=== PATIENT | male | born 1940 | race American Indian/Alaskan Native ===

== ENCOUNTER 2016-02-20 07:02 | Day surgery (SDC) | payer MEDICARE, OTHER ==
[2016-02-14 14:23] VITALS: BMI 29.7
[~2016-02-20 07:02] MED LIST: LACTATED RINGERS 1,000 ML IV SCH
[2016-02-20 07:22] VITALS: RESP 16; TEMP 97.7
[2016-02-20] MEDS ORDERED: PROPOFOL 10 MG/ML 20 ML VIAL IV ONE (08:26)
[2016-02-20] MEDS ORDERED: LIDOCAINE 1% INJ 10MG/ML (20 ML MDV) ONE (08:26)
--- NOTE | 2016-02-20 08:59 | P.PCN ---
Date of Procedure: 02/20/16 Preoperative Diagnosis: Postoperative Diagnosis: Procedure(s) Performed: Procedure: Colonoscopy and biopsy and polypectomy. Preoperative diagnosis: Change in bowel habits. Postoperative diagnosis: 1. Mild sigmoid diverticulosis with no evidence of acute diverticulitis or strictures. 2. Small sigmoid polyp snared but no large polyps or cancer. 3. Right colon biopsies obtained to rule out microscopic colitis. Preparation: HalfLytely prep. Sedation: Was provided by anesthesia. Brief clinical history: The patient is a 75-year-old male who is referred for this evaluation because of change in bowel habits in the form of diarrhea. The patient had a colonoscopy several years back. This evaluation is to rule out neoplasia or other pathology. Procedure: With the patient on his left lateral decubitus position and after informed consent and adequate sedation, the perianal area was inspected and it did not show any fissures or fistulas. There were no masses felt on digital rectal examination. The Olympus CFQ 160L video colonoscope was then inserted in the rectum in the usual fashion and advanced to the cecum. There were a few diverticular orifices seen scattered in the sigmoid but there was no evidence of acute diverticulitis or stricture. In the mid sigmoid, there was a small polyp measuring between 1 and 1.5 cm that was snared and retrieved by suctioning it to the tip of the endoscope but there were no large polyps or cancer. The mucosa, otherwise, appeared healthy with no edema, erythema, friability, ulceration, exudation or spontaneous bleeding. I obtained right colon biopsies to rule out microscopic colitis. I retroflexed endoscope in the rectum before the endoscope was withdrawn. The patient tolerated the procedure well. Plan: The patient was reassured. Discussed dietary measures. Will await pathology results and make additional recommendations accordingly. I will keep you updated on his progress. Implants: Indications for Procedure: Operative Findings: Description of Procedure:
[2016-02-20 09:30] VITALS: BP 156/79; PULSE 76
== END 2016-02-20 09:57 | disposition home or self-care (01) ==
LOC: ORWHC2ENDO 07:02
DX: D12.5 Benign neoplasm of sigmoid colon (principal); K57.30 Diverticulosis of large intestine without perforation or abscess without bleeding; I10 Essential (primary) hypertension; E78.5 Hyperlipidemia, unspecified; N40.0 Benign prostatic hyperplasia without lower urinary tract symptoms; G20 Parkinson's disease; R19.7 Diarrhea, unspecified; Z79.82 Long term (current) use of aspirin; Z79.899 Other long term (current) drug therapy
CPT/HCPCS: 88305; 45380; 45385; J2001; J2704; 99153

== ENCOUNTER 2016-02-28 07:17 | Observation (INO) | payer MEDICARE, OTHER ==
[2016-02-28] MEDS ORDERED: SODIUM CHLORIDE 0.9% 500 ML IV STA (07:24)
--- NOTE | 2016-02-28 07:29 | ED ---
General Adult HPI - General Stated complaint: fall Time Seen by Provider: 02/28/16 07:17 Source: RN notes reviewed - History of Present Illness Initial comments: This is a 76-year-old male who has a past medical history significant for dementia and Parkinson's disease. Patient got up today and went downstairs and shortly thereafter his daughter went down and found him on the ground. Daughter thought he may have struck his head on a table but there is no blood and no signs trauma. Daughter states initially he was a little confused but now he is at his baseline. There is a language barrier and the daughter has to interpret. EMS stated the patient complained of a headache currently he denies headache to his daughter he only complains of dizziness. Patient denies any nausea. Patient denies any visual disturbance. Patient does have a history of aneurysm. Patient denies any abdominal pain patient denies any recent illness fever cough. Patient denies any chest pain palpitations difficulty breathing or shortness of breath. Patient denies any extremity pain or hip pain. - Related Data Home Medications Medication Instructions Recorded Confirmed Aspirin EC [Ecotrin Low Dose] 81 mg PO DAILY 01/15/16 02/28/16 Donepezil [Aricept] 10 mg PO HS 01/15/16 02/28/16 Metoprolol Succinate (ER) [Toprol 50 mg PO BID 01/15/16 02/28/16 XL] Simvastatin [Zocor] 20 mg PO HS 01/15/16 02/28/16 Tamsulosin HCl [Flomax] 0.4 mg PO HS 01/15/16 02/28/16 Carbidopa-Levodopa 25-100 mg 1 tab PO TID 02/28/16 02/28/16 [Sinemet 25-100 mg] Allergies Allergy/AdvReac Type Severity Reaction Status Date / Time No Known Allergies Allergy Verified 02/28/16 08:10 Review of Systems ROS Statement: Those systems with pertinent positive or pertinent negative responses have been documented in the HPI. ROS Other: All systems not noted in ROS Statement are negative. Past Medical History Past Medical History: Hyperlipidemia, Hypertension, Pneumonia, Prostate Disorder Additional Past Medical History / Comment(s): daughter stated that "pt was started on rx for dementia but now found out he has brain aneurysm so not sure if that is what causing some problem?" balance issues, parkinsons, diarrhea History of Any Multi-Drug Resistant Organisms: None Reported Past Surgical History: Unable to Obtain Additional Past Surgical History / Comment(s): rt carotid endarterectomy, colonoscopy 10 years ago Past Anesthesia/Blood Transfusion Reactions: No Reported Reaction Past Psychological History: No Psychological Hx Reported Smoking Status: Former smoker Past Alcohol Use History: Occasional Additional Past Alcohol Use History / Comment(s): has smoked for 50 years, < 1ppd quit 1 month ago. Past Drug Use History: None Reported - Past Family History Father Family Medical History: Myocardial Infarction ([place]) Mother Family Medical History: CVA/TIA General Exam - General Exam Comments Initial Comments: GENERAL: Patient is well-developed and well-nourished. Patient is nontoxic and well- hydrated and is in mild distress. ENT: Neck is soft and supple. No significant lymphadenopathy is noted. Oropharynx is clear. Moist mucous membranes. Neck has full range of motion without eliciting any pain. EYES: The sclera were anicteric and conjunctiva were pink and moist. Extraocular movements were intact and pupils were equal round and reactive to light. Eyelids were unremarkable. PULMONARY: Unlabored respirations. Good breath sounds bilaterally. No audible rales rhonchi or wheezing was noted. CARDIOVASCULAR: There is a regular rate and rhythm without any murmurs gallops or rubs. ABDOMEN: Soft and nontender with normal bowel sounds. No palpable organomegaly was noted. There is no palpable pulsatile mass. SKIN: Skin is clear with no lesions or rashes and otherwise unremarkable. NEUROLOGIC: Patient is alert and oriented 2 but this is his baseline according to his daughter. Cranial nerves II through XII are grossly intact. Motor and sensory are also intact. Normal speech, volume and content. Symmetrical smile. MUSCULOSKELETAL: Normal extremities with adequate strength and full range of motion. No lower extremity swelling or edema. No calf tenderness. LYMPHATICS: No significant lymphadenopathy is noted PSYCHIATRIC: Normal psychiatric evaluation. Normal interpersonal interactions appears functionally intact in deals appropriately with others. No signs of depression. No signs of anxiety. Course Vital Signs 02/28/16 02/28/16 02/28/16 07:23 07:47 08:04 Temperature 95.8 F L Pulse Rate 53 L 55 L 64 Respiratory 12 15 15 Rate Blood Pressure 102/51 130/62 130/60 O2 Sat by Pulse 97 99 99 Oximetry Medical Decision Making - Medical Decision Making EKG shows sinus rhythm with an occasional PAC at 64 bpm MA was on a 40 QRS is 84 Q-T intervals 454 QTC is 468. Patient's EKG shows no ST segment elevation or depression or T-wave abdomen is noted Patient's CT of the brain and C-spine are negative. Patient's chest x-ray shows about it. Patient is unaware if he passed out or not therefore because of that possibility and the language barrier I feel is safe for the patient to be kept overnight and observed - Lab Data Result diagrams: 02/28/16 07:28 02/28/16 07:28 Lab Results 02/28/16 02/28/16 02/28/16 Range/Units 07:28 07:28 07:28 WBC 9.9 (3.8-10.6) k/uL RBC 4.69 (4.30-5.90) m/uL Hgb 12.8 L (13.0-17.5) gm/dL Hct 39.5 (39.0-53.0) % MCV 84.3 (80.0-100.0) fL MCH 27.2 (25.0-35.0) pg MCHC 32.3 (31.0-37.0) g/dL RDW 13.7 (11.5-15.5) % Plt Count 276 (150-450) k/uL Neutrophils % 77 % Lymphocytes % 16 % Monocytes % 4 % Eosinophils % 2 % Basophils % 0 % Neutrophils # 7.6 (1.3-7.7) k/uL Lymphocytes # 1.5 (1.0-4.8) k/uL Monocytes # 0.4 (0-1.0) k/uL Eosinophils # 0.2 (0-0.7) k/uL Basophils # 0.0 (0-0.2) k/uL PT (9.0-12.0) sec INR (<1.1) APTT (22.0-30.0) sec Sodium 141 (137-145) mmol/L Potassium 4.2 (3.5-5.1) mmol/L Chloride 104 (98-107) mmol/L Carbon Dioxide 29 (22-30) mmol/L Anion Gap 8 mmol/L BUN 15 (9-20) mg/dL Creatinine 1.07 (0.66-1.25) mg/dL Est GFR (MDRD) Af Amer >60 (>60 ml/min/1.73 sqM) Est GFR (MDRD) Non-Af >60 (>60 ml/min/1.73 sqM) Glucose 170 H (74-99) mg/dL POC Glucose (mg/dL) (75-99) mg/dL POC Glu Crossing [place] ID Calcium 8.7 (8.4-10.2) mg/dL Magnesium 1.8 (1.6-2.3) mg/dL Total Bilirubin 0.9 (0.2-1.3) mg/dL AST 15 L (17-59) U/L ALT 18 L (21-72) U/L Alkaline Phosphatase 84 (38-126) U/L Total Creatine Kinase 30 L (55-170) U/L CK-MB (CK-2) 1.2 (0.0-2.4) ng/mL CK-MB (CK-2) Rel Index 4.0 Troponin I <0.012 (0.000-0.034) ng/mL Total Protein 6.5 (6.3-8.2) g/dL Albumin 3.4 L (3.5-5.0) g/dL 02/28/16 02/28/16 Range/Units 07:28 07:31 WBC (3.8-10.6) k/uL RBC (4.30-5.90) m/uL Hgb (13.0-17.5) gm/dL Hct (39.0-53.0) % MCV (80.0-100.0) fL MCH (25.0-35.0) pg MCHC (31.0-37.0) g/dL RDW (11.5-15.5) % Plt Count (150-450) k/uL Neutrophils % % Lymphocytes % % Monocytes % % Eosinophils % % Basophils % % Neutrophils # (1.3-7.7) k/uL Lymphocytes # (1.0-4.8) k/uL Monocytes # (0-1.0) k/uL Eosinophils # (0-0.7) k/uL Basophils # (0-0.2) k/uL PT 10.9 (9.0-12.0) sec INR 1.1 (<1.1) APTT 23.2 (22.0-30.0) sec Sodium (137-145) mmol/L Potassium (3.5-5.1) mmol/L Chloride (98-107) mmol/L Carbon Dioxide (22-30) mmol/L Anion Gap mmol/L BUN (9-20) mg/dL Creatinine (0.66-1.25) mg/dL Est GFR (MDRD) Af Amer (>60 ml/min/1.73 sqM) Est GFR (MDRD) Non-Af (>60 ml/min/1.73 sqM) Glucose (74-99) mg/dL POC Glucose (mg/dL) 157 H (75-99) mg/dL POC Glu Crossing [place] ID Branch, Anuj Calcium (8.4-10.2) mg/dL Magnesium (1.6-2.3) mg/dL Total Bilirubin (0.2-1.3) mg/dL AST (17-59) U/L ALT (21-72) U/L Alkaline Phosphatase (38-126) U/L Total Creatine Kinase (55-170) U/L CK-MB (CK-2) (0.0-2.4) ng/mL CK-MB (CK-2) Rel Index Troponin I (0.000-0.034) ng/mL Total Protein (6.3-8.2) g/dL Albumin (3.5-5.0) g/dL Disposition Clinical Impression: Syncope, Dizziness Disposition: ADMITTED IP TO THIS [facility] Time of Disposition: 09:16
[2016-02-28 07:32] LABS: Glucose,Whole Blood 157 mg/dL (75-99)
[2016-02-28 07:41] LABS: Basophils % (A) 0 %; CH 28.4; CHCM 33.9; Eosinophils # (A) 0.2 k/uL (0-0.7); Eosinophils % (A) 2 %; HCT 39.5 % (39.0-53.0); HDW 3.25; HGB 12.8 gm/dL (13.0-17.5); Luc # (Auto) 0.09; Luc % (Auto) 1; Lymphocytes # (A) 1.5 k/uL (1.0-4.8); Lymphocytes % (A) 16 %; MCH 27.2 pg (25.0-35.0); MCHC 32.3 g/dL (31.0-37.0); MCV 84.3 fL (80.0-100.0); Mean Platelet Volume 8.1; Monocytes # (A) 0.4 k/uL (0-1.0); Monocytes % (A) 4 %; Neutrophils # (A) 7.6 k/uL (1.3-7.7); Neutrophils % (A) 77 %; RBC 4.69 m/uL (4.30-5.90); RDW 13.7 % (11.5-15.5); WBC 9.9 k/uL (3.8-10.6); WBC (Perox) 10.41
[2016-02-28 07:47] LABS: ALT 18 U/L (21-72); AST 15 U/L (17-59); Alkaline Phosphatase 84 U/L (38-126); Anion Gap 8 mmol/L; Blood Urea Nitrogen 15 mg/dL (9-20); Calcium 8.7 mg/dL (8.4-10.2); Carbon Dioxide 29 mmol/L (22-30); Chloride 104 mmol/L (98-107); Glucose 170 mg/dL (74-99); Magnesium 1.8 mg/dL (1.6-2.3); Non-African American GFR(MDRD) >60 (>60 ml/min/1.73 sqM); Potassium 4.2 mmol/L (3.5-5.1); Sodium 141 mmol/L (137-145); Total Bilirubin 0.9 mg/dL (0.2-1.3); Total Protein 6.5 g/dL (6.3-8.2)
[2016-02-28 07:58] LABS: Creatine Kinase 30 U/L (55-170)
[2016-02-28 08:10] LABS: Creatine Kinase MB 1.2 ng/mL (0.0-2.4); INR 1.1 (<1.1); Partial Thromboplastin Time 23.2 sec (22.0-30.0); Prothrombin Time 10.9 sec (9.0-12.0); Troponin I <0.012 ng/mL (0.000-0.034)
--- NOTE | 2016-02-28 08:26 | CT ---
EXAMINATION TYPE: CT brain cspine wo con DATE OF EXAM: 02/28/2016 8:16 AM COMPARISON: 01/17/2016 HISTORY: Fall CT DLP: 1762 mGycm, Automated exposure control for dose reduction was used. CONTRAST: None CT of the brain is performed utilizing 3 mm thick sections through the posterior fossa and 3 mm thick sections through the remaining calvarium. Study is performed within 24 hours of arrival to the hospital. No abnormal hyperdensity is present to suggest an acute intracranial hemorrhage. No mass lesion is evident. No acute infarcts are evident. Some subtle periventricular white matter hypodensity is present, like ly on the basis of chronic white matter ischemic type changes Ventricles and sulci are mildly prominent for the patient age. Paranasal sinuses and mastoid air cells within the aejpt-np-pyhn are clear. IMPRESSIONS: 1. Atrophy with periventricular white matter ischemic changes. CT cervical spine. COMPARISON: 01/17/2016 CT of the cervical spine is performed in the axial plane at 2 mm thick sections. Reconstructed image s in the coronal, and sagittal plane are reviewed on the computer. No acute fractures are evident. Vertebral body alignment is normal. There is loss of disc height at C5-C6. Some posterior loss of disc height is also present C2-C3. Vertebral body heights are preserved. No spinal canal stenosis is evident. Uncovertebral joint hypertrophy is moderate narrowing of the left foramen at C3-4. Some minimal endpl ate spurring from the superior endplate of C4 is present. Left paracentral calcification of the posterior longitudinal ligament appears to be present with mode rate left paracentral thecal sac compression. No AP spinal canal stenosis is present. Some cord conta ct may be present. Uncovertebral joint hypertrophy is present C5-6 with mild bilateral foraminal narr owing slightly greater on the left. Findings are stable from 01/17/2016 comparison. IMPRESSIONS: 1. Degenerative changes discussed above. 2. Foraminal narrowing greater on the left.
--- NOTE | 2016-02-28 09:08 | XR ---
EXAMINATION TYPE: XR chest 2V DATE OF EXAM: 02/28/2016 9:02 AM COMPARISON: 02/07/2016 HISTORY: Chest pain FINDINGS: No pneumothorax. Hyperinflation suggests COPD. The heart is enlarged and there is left lower lobe sub segmental consolidation. Hypertrophic and degenerative change of the spine. IMPRESSION: 1. Left lower lobe atelectasis or resolving infiltrate.
[2016-02-28] MEDS ORDERED: NITROGLYCERIN SL TABS 0.4 MG TAB SUBLINGUAL PRN (09:16)
[2016-02-28] MEDS: SODIUM CHLORIDE 0.9% 1,000 ML IV SCH (14:17)
[2016-02-28 15:15] LABS: Creatine Kinase 33 U/L (55-170)
[2016-02-28 15:29] LABS: Troponin I <0.012 ng/mL (0.000-0.034)
--- NOTE | 2016-02-28 16:01 | P.CNPUL ---
History of Present Illness Consult date: 02/28/16 Requesting physician: Cain Gilbert Reason for consult: other (Near syncope) Chief complaint: Dizziness, lightheadedness History of present illness: This is a very pleasant 76-year-old gentleman who follows with Dr. Baez as his primary care physician. He has a history of hypertension, hyperlipidemia, chronic nicotine addiction, dementia. He was recently started on Sinemet and Aricept for his dementia a couple of weeks ago. Early this morning proximal 20 6 AM he woke up and came to breakfast and took his Toprol XL along with Sinemet. The patient does have a history of brain aneurysms which are being followed closely by Dr. Daly as well. Approximately 1 hour later while he was sitting in the chair he stood up to go to the restroom and got dizzy and lightheaded and had a near syncopal episode. He was brought here via ambulance for the same. The patient himself does not speak [place]. The information is taken from his daughter and sister who are both at the bedside. They felt the patient may have lost consciousness briefly. They state the patient had no symptoms prior. No chest pain, palpitations. No shortness of breath. No previous history of syncope. They feel he may be slightly dehydrated secondary to decreased appetite and decreased intake of fluids. While in the emergency room his blood pressure is 102/51, maintaining O2 saturations in the upper 90s on room air. His hemoglobin was 12.8. No significant lab abnormalities. Troponins are negative 2. Computed tomography scan of the head and neck revealed degenerative changes and foraminal narrowing greater on the left. No acute abnormalities. The patient does have routine carotid Dopplers done at Dr. Newberry's office and family states there is been no significant abnormalities. Chest x-ray revealed COPD and a left lower lobe atelectasis but no acute pulmonary process. Currently, the patient is seen in the observation unit. He is awake and alert in no acute distress. He's been up with assistance. He has not had any further episodes of dizziness or near syncopal occasions. His only complaint at this time is that of being hungry. Review of Systems Toprol point review of system was conducted via translation by the patient's daughter and sister. All negative other than as mentioned in HPI. Past Medical History Past Medical History: Dementia, Hyperlipidemia, Hypertension, Musculoskeletal Disorder, Neurologic Disorder, Pneumonia, Prostate Disorder Additional Past Medical History / Comment(s): Brain aneurysm being monitored by Dr. Daly, parkinson's dx, balance issues, recent pneumonia, BPH, diverticulosis/recent polypectomy-benign, syncope yrs ago. History of Any Multi-Drug Resistant Organisms: None Reported Past Surgical History: Unable to Obtain Additional Past Surgical History / Comment(s): rt carotid endarterectomy, colonoscopies with last one 02/20/16. Past Anesthesia/Blood Transfusion Reactions: No Reported Reaction Past Psychological History: No Psychological Hx Reported Additional Psychological History / Comment(s): Pt resides with his becka. Pt understands alittle Andorran, he can read Andorran some and can sign his name. His primary language is Slovenian. Becka requests that literature be in Andorran, as she cares for the pt and understands Andorran fine. Pt uses a walker when out of the house. He does not drive. His daughter takes him to [employer]. He is currently going to PT twice a week. Smoking Status: Former smoker Past Alcohol Use History: Occasional Additional Past Alcohol Use History / Comment(s): has smoked for 50 years, < 1ppd quit 1 month ago (01/2016). Past Drug Use History: None Reported - Past Family History Father Family Medical History: Myocardial Infarction ([place]) Additional Family Medical History / Comment(s): Father had a [place] at about age 59 or 60yrs. Heart disease runs strongly in pt's side of the family-CAD and MIs. Mother Family Medical History: CVA/TIA Medications and Allergies Home Medications Medication Instructions Recorded Confirmed Type Aspirin EC [Ecotrin Low Dose] 81 mg PO DAILY 01/15/16 02/28/16 History Donepezil [Aricept] 10 mg PO HS 01/15/16 02/28/16 History Metoprolol Succinate (ER) [Toprol 50 mg PO BID 01/15/16 02/28/16 History XL] Simvastatin [Zocor] 20 mg PO HS 01/15/16 02/28/16 History Tamsulosin HCl [Flomax] 0.4 mg PO HS 01/15/16 02/28/16 History Carbidopa-Levodopa 25-100 mg 1 tab PO TID 02/28/16 02/28/16 History [Sinemet 25-100 mg] Allergies Allergy/AdvReac Type Severity Reaction Status Date / Time No Known Allergies Allergy Verified 02/28/16 08:10 Physical Exam Vitals: Vital Signs Temp Pulse Pulse Resp BP BP Pulse Ox 02/28/16 12:17 97 02/28/16 10:55 97.9 F 79 18 158/58 100 02/28/16 10:22 96.8 F L 75 16 143/63 100 02/28/16 09:24 96.7 F L 65 14 135/60 100 Intake and Output 02/28/16 02/28/16 02/28/16 06:59 14:59 22:59 Intake Total 118 Balance 118 Intake: Oral 118 Other: Voiding Method Toilet # Voids 1 Weight 82.4 kg Patient Weight 02/29/16 06:59 Weight 82.4 kg GENERAL EXAM: Alert, active, comfortable in no apparent distress. HEAD: Normocephalic. EYES: Normal reaction of pupils, equal size. NOSE: Clear with pink turbinates. THROAT: No erythema or exudates. NECK: No masses, no JVD. CHEST: No chest wall deformity. LUNGS: Equal air entry with no crackles, wheeze, rhonchi or dullness. CVS: S1 and S2 normal with no audible murmurs, regular rhythm. ABDOMEN: No hepatosplenomegaly, normal bowel sounds, no guarding or rigidity. SPINE: No scoliosis or deformity SKIN: No rashes CENTRAL NERVOUS SYSTEM: No focal deficits, tone is normal in all 4 extremities. Extremities: There is no significant peripheral edema. No clubbing, no cyanosis. Peripheral pulses are intact. Results - Laboratory Findings CBC and BMP: 02/28/16 07:28 02/28/16 07:28 PT/INR, D-dimer PT 10.9 sec (9.0-12.0) 02/28/16 07:28 INR 1.1 (<1.1) 02/28/16 07:28 Abnormal lab findings: Abnormal Labs 02/28/16 14:07 Total Creatine Kinase 33 L - Diagnostic Findings Chest x-ray: image reviewed Assessment and Plan Plan: Impression: #1 Near syncopal episode suspect orthostatic hypotension, the patient does have a history of brain aneurysms however computed tomography scan did not reveal any acute abnormalities. #2 Dementia, recently started on medications in the form of Sinemet and Aricept. #3 Hypertension currently on Toprol-XL 50 mg twice a day. #4 Hyperlipidemia currently on Zocor. 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 Plan: The patient was seen and evaluated by Dr. Adames. His computed tomography scan, chest x-ray and labs were reviewed. We will await echocardiogram results. We'll obtain some orthostatic blood pressure readings. We've explained to the family the potential of needing to spread out some of his morning medications. It is also important to keep up on his fluid intake. We' ll continue to monitor him closely. We'll continue to follow and make further recommendations based on his clinical status.
--- NOTE | 2016-02-28 16:19 | P.CRDCN ---
History of Present Illness Consult date: 02/28/16 History of present illness: This is a pleasant 76-year-old gentleman who sees Dr. Newberry as an outpatient with a past medical history significant for hypertension, dyslipidemia, carotid disease, as well as Parkinson disease, was brought by his family to the emergency room with dizziness and lightheadedness and presyncope. The patient woke up from sleep earlier today and he was sitting at home when he tried to stand up and then felt dizzy and lightheaded and almost passed out. He did not experience any symptoms of chest pain or discomfort or any feeling of heart racing or fluttering and there is no syncope. The EKG showed sinus mechanism without any significant ST or T-wave abnormalities. The cardiac enzymes were checked and came in to be unremarkable. The patient is not aware of any prior history of coronary artery disease, congestive heart failure, or cardiac arrhythmia. According to his family, he just was started on Parkinson disease medications about 4 weeks ago and also according to his family he does not drink water very often. Past Medical History Past Medical History: Dementia, Hyperlipidemia, Hypertension, Musculoskeletal Disorder, Neurologic Disorder, Pneumonia, Prostate Disorder Additional Past Medical History / Comment(s): Brain aneurysm being monitored by Dr. Daly, parkinson's dx, balance issues, recent pneumonia, BPH, diverticulosis/recent polypectomy-benign, syncope yrs ago. History of Any Multi-Drug Resistant Organisms: None Reported Past Surgical History: Unable to Obtain Additional Past Surgical History / Comment(s): rt carotid endarterectomy, colonoscopies with last one 02/20/16. Past Anesthesia/Blood Transfusion Reactions: No Reported Reaction Past Psychological History: No Psychological Hx Reported Additional Psychological History / Comment(s): Pt resides with his becka. Pt understands alittle Montenegrin, he can read Montenegrin some and can sign his name. His primary language is Turkmen. Becka requests that literature be in Montenegrin, as she cares for the pt and understands Montenegrin fine. Pt uses a walker when out of the house. He does not drive. His daughter [facility] him to [employer]. He is currently going to PT twice a week. Smoking Status: Former smoker Past Alcohol Use History: Occasional Additional Past Alcohol Use History / Comment(s): has smoked for 50 years, < 1ppd quit 1 month ago (01/2016). Past Drug Use History: None Reported - Past Family History Father Family Medical History: Myocardial Infarction ([place]) Additional Family Medical History / Comment(s): Father had a [place] at about age 59 or 60yrs. Heart disease runs strongly in pt's side of the family-CAD and MIs. Mother Family Medical History: CVA/TIA Medications and Allergies Home Medications Medication Instructions Recorded Confirmed Type Aspirin EC [Ecotrin Low Dose] 81 mg PO DAILY 01/15/16 02/28/16 History Donepezil [Aricept] 10 mg PO HS 01/15/16 02/28/16 History Metoprolol Succinate (ER) [Toprol 50 mg PO BID 01/15/16 02/28/16 History XL] Simvastatin [Zocor] 20 mg PO HS 01/15/16 02/28/16 History Tamsulosin HCl [Flomax] 0.4 mg PO HS 01/15/16 02/28/16 History Carbidopa-Levodopa 25-100 mg 1 tab PO TID 02/28/16 02/28/16 History [Sinemet 25-100 mg] Allergies Allergy/AdvReac Type Severity Reaction Status Date / Time No Known Allergies Allergy Verified 02/28/16 08:10 Physical Exam Vitals: Vital Signs Temp Pulse Pulse Resp BP BP Pulse Ox 02/28/16 15:59 97.2 F L 73 18 143/64 98 02/28/16 12:17 97 02/28/16 10:55 97.9 F 79 18 158/58 100 02/28/16 10:22 96.8 F L 75 16 143/63 100 02/28/16 09:24 96.7 F L 65 14 135/60 100 Intake and Output 02/28/16 02/28/16 02/28/16 06:59 14:59 22:59 Intake Total 118 Balance 118 Intake: Oral 118 Other: Voiding Method Toilet # Voids 1 Weight 82.4 kg Patient Weight 02/29/16 06:59 Weight 82.4 kg - Constitutional General appearance: no acute distress - Respiratory Respiratory: bilateral: CTA - Cardiovascular Rhythm: regular Heart sounds: normal: S1, S2 Results 02/28/16 07:28 02/28/16 07:28 Cardiac Enzymes 02/28/16 Range/Units 14:07 CK-MB (CK-2) 1.0 (0.0-2.4) ng/mL Troponin I <0.012 (0.000-0.034) ng/mL Current Medications Generic Name Dose Route Start Last Admin Trade Name Freq PRN Reason Stop Dose Admin Aspirin 81 mg 02/29/16 09:00 Aspirin PO DAILY [facility] Atorvastatin Calcium 10 mg 02/28/16 21:00 Lipitor PO HS ALEXYS Carbidopa/Levodopa 1 each 02/28/16 16:00 Sinemet 25-100 PO TID [facility] Sodium Chloride 1,000 mls @ 100 mls/hr 02/28/16 14:00 02/28/16 14:17 Saline 0.9% IV 100 mls/hr .Q10H ALEXYS Administration Metoprolol Succinate 50 mg 02/29/16 09:00 Toprol Xl PO DAILY [facility] Nitroglycerin 0.4 mg 02/28/16 09:16 Nitrostat SUBLINGUAL Q5M PRN Chest Pain Tamsulosin HCl 0.4 mg 02/28/16 21:00 Flomax PO HS ALEXYS Intake and Output 02/28/16 02/28/16 02/28/16 06:59 14:59 22:59 Intake Total 118 Balance 118 Intake: Oral 118 Other: Voiding Method Toilet # Voids 1 Weight 82.4 kg Patient Weight 02/29/16 06:59 Weight 82.4 kg Assessment and Plan Plan: Assessment #1 dizziness and lightheadedness and presyncope #2 Parkinson disease #3 systemic hypertension #4 dyslipidemia Plan #1 the patient clinical scenario consistent with orthostatic hypotension with a differential of vasovagal and dehydration #2 he was started on IV fluid #3 we will check orthostatic blood pressure tomorrow #4 follow-up on the echocardiogram #5 follow-up with him
[2016-02-28] MEDS: CARBIDOPA-LEVODOPA 25-100 MG 1 EACH TAB PO SCH (16:51)
[2016-02-28] MEDS ORDERED: TAMSULOSIN 0.4 MG CAP.ER.24H PO SCH (21:00)
[2016-02-28] MEDS ORDERED: ATORVASTATIN 10 MG TAB PO SCH (21:00)
[2016-02-28 21:34] LABS: Creatine Kinase 39 U/L (55-170)
[2016-02-28 21:48] LABS: Creatine Kinase MB 0.9 ng/mL (0.0-2.4); Troponin I <0.012 ng/mL (0.000-0.034)
--- NOTE | 2016-02-28 22:30 | HP ---
DATE OF ADMISSION: Patient is a very pleasant 76-year-old gentleman with history of Parkinson's and parkinsonian dementia; that is possibility of Lewy body dementia. Earlier today morning he was complaining of dizziness. Patient was later found on the ground with the possibility of syncope. Patient looked pale at that time. Patient denied any chest pain. Patient denied any nausea or vomiting. Patient was initially confused but not now, and patient denied loss of bowel or bladder continence. I am unable to get much history from the patient because of the communication barrier. Daughter was present at the bedside and was able to translate for me. Patient denied any fever or chills. Patient denied any nausea or vomiting, cough, runny nose. Patient has not been eating or drinking well. Patient's diet is abnormal as well; does not eat much. Patient clinically appears to be minimally dehydrated. EKG did not show any acute ST-T wave changes. No significant abnormality on the EKG was found. Denies any nausea. Patient was having diarrhea about a week ago, which resolved at this point of time. Patient was evaluated for the chronic diarrhea along with colonoscopy, all of which came back negative. REVIEW OF SYSTEMS: CONSTITUTIONAL: No fever, no malaise, no fatigue. HEENT: No recent visual problems or hearing problems. Denied any sore throat. CARDIOVASCULAR: As described in HPI. Patient denied any chest pain, orthopnea, PND. PULMONARY: No shortness of breath, no cough, no hemoptysis. GASTROINTESTINAL: No diarrhea, no nausea, no vomiting, no abdominal pain. Normoactive bowel sounds. NEUROLOGICAL: No headaches, no weakness, no numbness. HEMATOLOGICAL: Denies any bleeding or petechiae. GENITOURINARY: Denies any burning micturition, frequency, or urgency. MUSCULOSKELETAL/RHEUMATOLOGICAL: Denies any joint pain, swelling, or any muscle pain. ENDOCRINE: Denies any polyuria or polydipsia. The rest of the 14 point review of systems is negative. Home medications include: 1. Aspirin. 2. Donepezil. 3. Metoprolol. 4. Simvastatin. 5. Tamsulosin. 6. Carbidopa levodopa (Sinemet). ALLERGIES: NO KNOWN DRUG ALLERGIES. PAST MEDICAL HISTORY: 1. Hyperlipidemia. 2. Hypertension. 3. Pneumonia. 4. Benign prostatic hypertrophy. 5. Issues with chronic diarrhea, as mentioned above. 6. Patient had right-sided carotid endarterectomy in the past. 7. Recent colonoscopy. SOCIAL HISTORY: Former smoker; quit smoking one month ago. Denied any alcohol abuse or any drug abuse. FAMILY HISTORY: Father had myocardial infarction. Mother had CVA and TIA. PHYSICAL EXAMINATION: VITAL SIGNS: Temperature 98.6, pulse of 75, respiratory rate of 16. Blood pressure is 143/63. Saturating at 95% on room air. GENERAL: The patient is alert and oriented times around 2 to 3. Patient is unable to tell me the exact date but was pretty close. Not in apparently respiratory distress. HEENT: Pupils are round and equally reacting to light. EOMI. No scleral icterus. No conjunctival pallor. Normocephalic, atraumatic. No pharyngeal erythema. No thyromegaly. CARDIOVASCULAR: S1 and S2 present. No murmurs, rubs, or gallops. PULMONARY: Chest is clear to auscultation, no wheezing or crackles. ABDOMEN: Soft, nontender, nondistended, normoactive bowel sounds. No palpable organomegaly. MUSCULOSKELETAL: No joint swelling or deformity. EXTREMITIES: No cyanosis, clubbing, or pedal edema. NEUROLOGICAL: Gross neurological examination did not reveal any focal deficits. SKIN: No rashes. LABORATORY DATA: CBC, CMP are abnormal for minimally elevated creatinine of 1.07. Head and cervical CT did not show any significant abnormality, although there is some degenerative disc disease. Chest x-ray is showing resolving infiltrate; no signs or symptoms of pneumonia. Clinically patient does not have pneumonia. EKG is as mentioned above. ASSESSMENT AND PLAN: 1. Syncopal episode; unsure of the exact etiology. Patient may be a little bit dehydrated. I will obtain orthostatic vitals. Echocardiogram will be obtained. Will monitor overnight. Will hydrate him with 100 mL/hour of normal saline. 2. Possible dehydration. 3. Possible Lewy body dementia; appears to be mild to moderate. 4. Parkinson's, recently diagnosed, because of which I will obtain a PT and OT consultation. Patient does have some gait disability apparently because of that, although I did not test for that. Patient does not have any significant tremor at this point of time. 5. Hypertension. 6. Hyperlipidemia. 7. Benign prostatic hypertrophy. For above-mentioned chronic medical problems, I will go ahead and continue his home medications. Patient's primary care physician is Dr. Regino Baez.
[2016-02-29] MEDS: CARBIDOPA-LEVODOPA 25-100 MG 1 EACH TAB PO SCH ×2 (01:03→09:43)
[2016-02-29 02:55] LABS: Cholesterol 124 mg/dL (<200); HDL Cholesterol 39 mg/dL (40-60); Triglycerides 131 mg/dL (<150)
[2016-02-29 08:19] VITALS: RESP 18; TEMP 97.5
--- NOTE | 2016-02-29 08:57 | P.PN ---
Subjective Principal diagnosis: Presyncope This is a pleasant 76-year-old gentleman who sees Dr. Newberry as an outpatient with a past medical history significant for hypertension, dyslipidemia, carotid disease, as well as Parkinson disease, was brought by his family to the emergency room with dizziness and lightheadedness and presyncope. The patient woke up from sleep earlier today and he was sitting at home when he tried to stand up and then felt dizzy and lightheaded and almost passed out. He did not experience any symptoms of chest pain or discomfort or any feeling of heart racing or fluttering and there is no syncope. The EKG showed sinus mechanism without any significant ST or T-wave abnormalities. The cardiac enzymes were checked and came in to be unremarkable. The patient is not aware of any prior history of coronary artery disease, congestive heart failure, or cardiac arrhythmia. According to his family, he just was started on Parkinson disease medications about 4 weeks ago and also according to his family he does not drink water very often. On follow-up with the patient today, he seems to be feeling a bit better. I am still waiting for the echocardiogram results. If the echo showed no significant finding the patient can be discharged home. Objective - Vital Signs Vital signs: Vital Signs Temp 97.5 F L 02/29/16 08:00 Pulse 78 02/29/16 08:00 Resp 18 02/29/16 08:00 BP 133/68 02/29/16 08:00 Pulse Ox 94 L 02/29/16 08:00 Intake & Output 02/28/16 02/29/16 02/29/16 18:59 06:59 18:59 Intake Total 318 Balance 318 Weight 82.4 kg Intake: Oral 318 Other: Voiding Method Toilet Toilet # Voids 2 3 - Constitutional General appearance: Present: no acute distress - Respiratory Respiratory: bilateral: CTA - Cardiovascular Rhythm: regular Heart sounds: normal: S1, S2 - Labs CBC & Chem 7: 02/28/16 07:28 02/28/16 07:28 Labs: Abnormal Lab Results - Last 24 Hours (Table) 02/28/16 02/28/16 Range/Units 14:07 20:36 Total Creatine Kinase 33 L 39 L (55-170) U/L Assessment and Plan Plan: Assessment #1 dizziness and lightheadedness and presyncope #2 Parkinson disease #3 systemic hypertension #4 dyslipidemia Plan #1 the patient symptoms improved on IV fluid #2 we will follow-up on the echocardiogram
[2016-02-29] MEDS ORDERED: ASPIRIN 325 MG TAB PO SCH (09:00)
[2016-02-29] MEDS ORDERED: ASPIRIN 81 MG CHEW PO SCH (09:00)
[2016-02-29] MEDS ORDERED: METOPROLOL SUCCINATE (ER) 50 MG TAB.ER.24H PO SCH (09:00)
--- NOTE | 2016-02-29 10:45 | ECHOF ---
Referral Reason:Possible syncope MEASUREMENTS -------- HEIGHT: 167.6 cm WEIGHT: 82.1 kg BP: IVSd: 1.2 cm (0.6 - 1.1) LVIDd: 3.6 cm (3.9 - 5.3) LVPWd: 1.3 cm (0.6 - 1.1) IVSs: 1.2 cm LVIDs: 2.1 cm LVPWs: 2.3 cm Ao Diam: 2.9 cm (2.0 - 3.7) AV Cusp: 2.2 cm (1.5 - 2.6) LA Diam: 3.3 cm (2.7 - 3.8) MV EXCURSION: 11.800 mm (> 18.000) MV EF SLOPE: 61 mm/s (70 - 150) EPSS: 0.7 cm MV E Artur: 0.93 m/s MV DecT: 197 ms MV A Artur: 1.16 m/s MV E/A Ratio: 0.80 RAP: 5.00 mmHg RVSP: 28.63 mmHg FINDINGS -------- Sinus rhythm. This was a technically good study. There is mild concentric left ventricular hypertrophy. Overall left ventricular systolic function is normal with, an EF between 55 - 60 %. The right ventricle is normal in size and function. The left atrium is normal in size. The right atrium is normal in size. The aortic valve is trileaflet, and appears structurally normal. No aortic stenosis or regurgitation. There is trace mitral regurgitation. Trace tricuspid regurgitation present. The right ventricular systolic pressure, as measured by Doppler, is 28.63mmHg. Pulmonic valve appears structurally normal. The pericardium is normal. CONCLUSIONS -------- 1. Sinus rhythm. 2. Trace tricuspid regurgitation present. 3. The right ventricular systolic pressure, as measured by Doppler, is 28.63mmHg. 4. Pulmonic valve appears structurally normal. 5. The pericardium is normal. 6. This was a technically good study. 7. There is mild concentric left ventricular hypertrophy. 8. Overall left ventricular systolic function is normal with, an EF between 55 - 60 %. 9. The right ventricle is normal in size and function. 10. The left atrium is normal in size. 11. The right atrium is normal in size. 12. The aortic valve is trileaflet, and appears structurally normal. No aortic stenosis or regurgitation. 13. There is trace mitral regurgitation. DESIGNER/WRITER: Blanca Taveras RDCS
[2016-02-29 12:01] VITALS: BP 138/63; PULSE 69
[2016-02-29] MEDS: SODIUM CHLORIDE 0.9% 1,000 ML IV SCH (14:34)
--- NOTE | 2016-03-01 10:02 | DS ---
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 Echocardiogram showed normal ejection fraction. No abnormal ( ) on the EKG. The patient dizziness resolved with IV fluids resuscitation. The patient is probably mildly dehydrated and the patient is being discharged today in stable medical condition to home. ( )evaluated the patient as well. The patient was seen and examined on the day of discharge. Vital signs stable. PHYSICAL EXAMINATION: GENERAL: The patient is alert and oriented times around two, not in any acute distress. Well developed, well nourished. HEENT: Pupils are round and equally reacting to light. EOMI. No scleral icterus. No conjunctival pallor. Normocephalic, atraumatic. No pharyngeal erythema. No thyromegaly. CARDIOVASCULAR: S1 and S2 present. No murmurs, rubs, or gallops. PULMONARY: Chest is clear to auscultation, no wheezing or crackles. ABDOMEN: Soft, nontender, nondistended, normoactive bowel sounds. No palpable organomegaly. MUSCULOSKELETAL: No joint swelling or deformity. EXTREMITIES: No cyanosis, clubbing, or pedal edema. NEUROLOGICAL: Gross neurological examination did not reveal any focal deficits. SKIN: No rashes. There is significant language barrier. LABORATORY DATA: None available from today. ASSESSMENT AND PLAN: 1. Syncopal episode. 2. Dehydration, improved with IV fluids. 3. Possible Lewy-Body dementia. 4. Parkinson's symptoms are controlled. 5. Hypertension. 6. Hyperlipidemia. 7. Benign prostatic hypertrophy. The patient will be discharged today in stable medical condition to home. No medication changes were made. The patient needs to be encouraged to drink lots of water. The patient will follow with Dr. Baez in [address] Angel Newberry in 2 weeks. Activity as tolerated. Regular diet.
== END 2016-02-29 14:45 | disposition home or self-care (01) ==
LOC: EC 07:17 → 3OBS 09:17
PROVIDERS: ADMIT Hospitalist; ATTEND Hospitalist
DX: E86.0 Dehydration (principal); R55 Syncope and collapse; G31.83 Neurocognitive disorder with Lewy bodies; F02.80 Dementia in other diseases classified elsewhere, unspecified severity, without behavioral disturbance, psychotic disturbance, mood disturbance, and anxiety; I10 Essential (primary) hypertension; E78.5 Hyperlipidemia, unspecified; N40.0 Benign prostatic hyperplasia without lower urinary tract symptoms; J44.9 Chronic obstructive pulmonary disease, unspecified; J98.11 Atelectasis; Z82.3 Family history of stroke; Z82.49 Family history of ischemic heart disease and other diseases of the circulatory system; Z86.79 Personal history of other diseases of the circulatory system; Z87.01 Personal history of pneumonia (recurrent); Z87.891 Personal history of nicotine dependence; Z91.81 History of falling; Z79.82 Long term (current) use of aspirin; Z79.899 Other long term (current) drug therapy
CPT/HCPCS: 36415; 93005; 93306; 97162; 80061; 80053; 83036; 82550; 82553; 83735; 84484; 85025; 85610; 85730; 71020; 72125; 70450; 99285; 96360; G0378 ×2; 96361

== ENCOUNTER → 2016-03-29 | Outpatient (CLI) | payer MEDICARE, OTHER ==
[2016-03-29 17:01] LABS: Appearance,Urine Clear (Clear); Bilirubin,Urine Negative (Negative); Glucose,Urine (UA) Negative (Negative); Ketones,Urine Negative (Negative); Leukocyte Esterase,Urine Negative (Negative); Nitrite,Urine Negative (Negative); Protein,Urine Negative (Negative); Specific Gravity,Urine 1.022 (1.001-1.035); UA Billing (MACRO vs. MICRO) CHEM; Urobilinogen,Urine <2.0 mg/dL (<2.0)
[2016-03-29 17:08] LABS: Partial Thromboplastin Time 27.7 sec (22.0-30.0); Prothrombin Time 10.6 sec (9.0-12.0)
[2016-03-29 17:14] LABS: Anion Gap 13 mmol/L; Blood Urea Nitrogen 19 mg/dL (9-20); Carbon Dioxide 29 mmol/L (22-30); Chloride 100 mmol/L (98-107); Non-African American GFR(MDRD) >60 (>60 ml/min/1.73 sqM); Potassium 4.2 mmol/L (3.5-5.1); Sodium 142 mmol/L (137-145)
[2016-03-29 17:43] LABS: Basophils % (A) 0 %; CH 28.1; Eosinophils # (A) 0.3 k/uL (0-0.7); Eosinophils % (A) 5 %; HCT 40.4 % (39.0-53.0); HDW 3.31; HGB 13.2 gm/dL (13.0-17.5); Luc # (Auto) 0.08; Luc % (Auto) 1; Lymphocytes # (A) 1.1 k/uL (1.0-4.8); Lymphocytes % (A) 15 %; MCHC 32.7 g/dL (31.0-37.0); MCV 85.7 fL (80.0-100.0); Monocytes # (A) 0.3 k/uL (0-1.0); Monocytes % (A) 5 %; Neutrophils # (A) 5.4 k/uL (1.3-7.7); Neutrophils % (A) 74 %; RBC 4.71 m/uL (4.30-5.90); WBC 7.3 k/uL (3.8-10.6); WBC (Perox) 7.27
== END | disposition home or self-care (01) ==
LOC: LABWHC1 16:40
PROVIDERS: ATTEND Neurological Surgery
DX: Z01.812 Encounter for preprocedural laboratory examination (principal)
CPT/HCPCS: 36415; 80051; 81003; 82565; 84520; 85025; 85610; 85730

== ENCOUNTER → 2016-05-14 | Outpatient (CLI) | payer MEDICARE, OTHER ==
[2016-05-14 17:41] LABS: Basophils # (A) 0.1 k/uL (0-0.2); Basophils % (A) 1 %; CHCM 33.7; Eosinophils # (A) 0.5 k/uL (0-0.7); Eosinophils % (A) 6 %; HCT 41.5 % (39.0-53.0); HDW 3.32; HGB 13.7 gm/dL (13.0-17.5); Luc # (Auto) 0.16; Luc % (Auto) 2; Lymphocytes # (A) 1.2 k/uL (1.0-4.8); Lymphocytes % (A) 15 %; MCH 27.8 pg (25.0-35.0); MCHC 33.1 g/dL (31.0-37.0); MCV 83.8 fL (80.0-100.0); Mean Platelet Volume 7.2; Monocytes # (A) 0.3 k/uL (0-1.0); Monocytes % (A) 4 %; Neutrophils # (A) 5.6 k/uL (1.3-7.7); Neutrophils % (A) 72 %; RBC 4.95 m/uL (4.30-5.90); RDW 13.8 % (11.5-15.5); WBC 7.8 k/uL (3.8-10.6); WBC (Perox) 8.19
[2016-05-14 17:46] LABS: Appearance,Urine Clear (Clear); Bilirubin,Urine Negative (Negative); Glucose,Urine (UA) Negative (Negative); Ketones,Urine Negative (Negative); Leukocyte Esterase,Urine Negative (Negative); Mucus,Urine Rare /hpf; Nitrite,Urine Negative (Negative); Particle Count 1558; Protein,Urine Negative (Negative); RBC,Urine 1 /hpf (0-5); UA Billing (MACRO vs. MICRO) MICRO; Urobilinogen,Urine <2.0 mg/dL (<2.0); WBC,Urine <1 /hpf (0-5)
[2016-05-14 17:48] LABS: INR 1.1 (<1.1); Partial Thromboplastin Time 26.1 sec (22.0-30.0); Prothrombin Time 10.7 sec (9.0-12.0)
[2016-05-14 17:57] LABS: Anion Gap 12 mmol/L; Blood Urea Nitrogen 18 mg/dL (9-20); Carbon Dioxide 27 mmol/L (22-30); Chloride 104 mmol/L (98-107); Non-African American GFR(MDRD) >60 (>60 ml/min/1.73 sqM); Potassium 4.5 mmol/L (3.5-5.1); Sodium 143 mmol/L (137-145)
== END | disposition home or self-care (01) ==
LOC: LABWHC1 16:54
PROVIDERS: ATTEND Neurological Surgery
DX: Z01.812 Encounter for preprocedural laboratory examination (principal)
CPT/HCPCS: 36415; 80051; 81001; 82565; 84520; 85025; 85610; 85730; 87086

== ENCOUNTER → 2016-10-16 | Outpatient (CLI) | payer MEDICARE, OTHER ==
[2016-10-16 09:08] LABS: ALT 25 U/L (21-72); AST 13 U/L (17-59); Alkaline Phosphatase 84 U/L (38-126); Anion Gap 10 mmol/L; Blood Urea Nitrogen 15 mg/dL (9-20); Calcium 8.8 mg/dL (8.4-10.2); Carbon Dioxide 29 mmol/L (22-30); Chloride 103 mmol/L (98-107); Cholesterol 132 mg/dL (<200); Glucose 99 mg/dL (74-99); HDL Cholesterol 48 mg/dL (40-60); Non-African American GFR(MDRD) >60 (>60 ml/min/1.73 sqM); Potassium 4.1 mmol/L (3.5-5.1); Sodium 142 mmol/L (137-145); Total Bilirubin 0.7 mg/dL (0.2-1.3); Total Protein 6.7 g/dL (6.3-8.2)
== END | disposition home or self-care (01) ==
LOC: LABWHC1 08:14
PROVIDERS: ATTEND Internal Medicine Interventional Cardiology
DX: E78.2 Mixed hyperlipidemia (principal)
CPT/HCPCS: 36415; 80053; 80061

== ENCOUNTER 2017-01-06 05:27 | Inpatient (IN) | payer MEDICARE, OTHER ==
[2017-01-06] MEDS ORDERED: PANTOPRAZOLE 40 MG/10 ML VIAL IVP STA (05:49)
--- NOTE | 2017-01-06 05:52 | ED ---
General Adult HPI - General Chief complaint: GI Bleed Stated complaint: GI Bleed Time Seen by Provider: 01/06/17 05:33 Source: patient, family, EMS, RN notes reviewed Mode of arrival: EMS Limitations: language barrier (Daughter is present for translation), altered mental status (Dementia history) - History of Present Illness Initial comments: Patient is a pleasant 76-year-old male presenting to the emergency department with concerns for GI bleed. Patient comes from senior care with reports of red stool. Daughter states patient did eat beets last night. Patient has no complaints. Patient denies any pain or fatigue. Patient is unclear if his stools have been red or not. Patient is a poor historian secondary to language barrier and dementia history. Daughter states patient was recently diagnosed with renal failure and recently started dialysis. Patient also had a recent fall with cervical fracture. Patient is in a c-collar at this point. - Related Data Home Medications Medication Instructions Recorded Confirmed Aspirin EC [Ecotrin Low Dose] 81 mg PO DAILY 01/15/16 12/18/16 Donepezil [Aricept] 10 mg PO HS 01/15/16 12/18/16 Metoprolol Succinate (ER) [Toprol 25 mg PO BID 01/15/16 12/18/16 XL] Simvastatin [Zocor] 20 mg PO HS 01/15/16 12/18/16 Tamsulosin HCl [Flomax] 0.4 mg PO HS 01/15/16 12/18/16 Carbidopa-Levodopa 25-100 mg 1 tab PO BID 02/28/16 12/18/16 [Sinemet 25-100 mg] Clopidogrel Bisulfate [Plavix] 75 mg PO DAILY 12/18/16 12/18/16 Allergies Allergy/AdvReac Type Severity Reaction Status Date / Time No Known Allergies Allergy Verified 12/18/16 04:55 Review of Systems ROS Statement: Those systems with pertinent positive or pertinent negative responses have been documented in the HPI. ROS Other: All systems not noted in ROS Statement are negative. Constitutional: Denies: fever Eyes: Denies: eye pain ENT: Denies: ear pain Respiratory: Denies: cough, dyspnea Cardiovascular: Denies: chest pain Endocrine: Denies: fatigue Gastrointestinal: Denies: abdominal pain Genitourinary: Denies: hematuria Skin: Denies: rash Neurological: Denies: weakness Past Medical History Past Medical History: Dementia, Hyperlipidemia, Hypertension, Musculoskeletal Disorder, Neurologic Disorder, Pneumonia, Prostate Disorder Additional Past Medical History / Comment(s): Brain aneurysm being monitored by Dr. Daly, parkinson's dx, balance issues, recent pneumonia, BPH, diverticulosis/recent polypectomy-benign, syncope yrs ago. History of Any Multi-Drug Resistant Organisms: None Reported Past Surgical History: Unable to Obtain Additional Past Surgical History / Comment(s): rt carotid endarterectomy, colonoscopies with last one 02/20/16. Past Anesthesia/Blood Transfusion Reactions: No Reported Reaction Past Psychological History: No Psychological Hx Reported Smoking Status: Former smoker Past Alcohol Use History: Occasional Past Drug Use History: None Reported - Past Family History Father Family Medical History: Myocardial Infarction ([place]) Additional Family Medical History / Comment(s): Father had a [place] at about age 59 or 60yrs. Heart disease runs strongly in pt's side of the family-CAD and MIs. Mother Family Medical History: CVA/TIA General Exam Limitations: language barrier General appearance: alert, in no apparent distress Head exam: Present: atraumatic Eye exam: Present: normal appearance ENT exam: Present: normal oropharynx Neck exam: Present: other (Cervical collar present) Respiratory exam: Present: normal lung sounds bilaterally Cardiovascular Exam: Present: regular rate, normal rhythm GI/Abdominal exam: Present: soft. Absent: tenderness Rectal exam: Present: normal inspection. Absent: bloody stool Extremities exam: Present: normal inspection Neurological exam: Present: alert Psychiatric exam: Present: normal affect, normal mood Skin exam: Present: normal color Course Vital Signs 01/06/17 01/06/17 05:28 06:32 Temperature 97.4 F L Pulse Rate 73 69 Respiratory 20 18 Rate Blood Pressure 139/62 139/62 O2 Sat by Pulse 94 L 99 Oximetry Medical Decision Making - Medical Decision Making Patient reevaluated. Family updated. Case was discussed with Dr. Hudson, who will admit for Dr. Cantrell with GI consult. - Lab Data Result diagrams: 01/06/17 05:35 01/06/17 05:35 Lab Results 01/06/17 01/06/17 01/06/17 Range/Units 05:35 05:35 05:35 WBC 5.2 (3.8-10.6) k/uL RBC 2.58 L (4.30-5.90) m/uL Hgb 7.0 L* (13.0-17.5) gm/dL Hct 21.6 L (39.0-53.0) % MCV 83.5 (80.0-100.0) fL MCH 27.0 (25.0-35.0) pg MCHC 32.3 (31.0-37.0) g/dL RDW 16.7 H (11.5-15.5) % Plt Count 281 (150-450) k/uL Neutrophils % 68 % Lymphocytes % 19 % Monocytes % 8 % Eosinophils % 4 % Basophils % 1 % Neutrophils # 3.6 (1.3-7.7) k/uL Lymphocytes # 1.0 (1.0-4.8) k/uL Monocytes # 0.4 (0-1.0) k/uL Eosinophils # 0.2 (0-0.7) k/uL Basophils # 0.0 (0-0.2) k/uL Anisocytosis Slight PT 11.2 (9.0-12.0) sec INR 1.1 (<1.2) APTT 31.0 H (22.0-30.0) sec Sodium 137 (137-145) mmol/L Potassium 3.8 (3.5-5.1) mmol/L Chloride 95 L (98-107) mmol/L Carbon Dioxide 35 H (22-30) mmol/L Anion Gap 7 mmol/L BUN 15 (9-20) mg/dL Creatinine 3.82 H (0.66-1.25) mg/dL Est GFR (MDRD) Af Amer 19 (>60 ml/min/1.73 sqM) Est GFR (MDRD) Non-Af 15 (>60 ml/min/1.73 sqM) Glucose 101 H (74-99) mg/dL Calcium 8.4 (8.4-10.2) mg/dL Total Bilirubin 0.3 (0.2-1.3) mg/dL AST 15 L (17-59) U/L ALT 22 (21-72) U/L Alkaline Phosphatase 99 (38-126) U/L Total Protein 5.9 L (6.3-8.2) g/dL Albumin 2.9 L (3.5-5.0) g/dL Stool Occult Blood (Negative) 01/06/17 Range/Units 06:00 WBC (3.8-10.6) k/uL RBC (4.30-5.90) m/uL Hgb (13.0-17.5) gm/dL Hct (39.0-53.0) % MCV (80.0-100.0) fL MCH (25.0-35.0) pg MCHC (31.0-37.0) g/dL RDW (11.5-15.5) % Plt Count (150-450) k/uL Neutrophils % % Lymphocytes % % Monocytes % % Eosinophils % % Basophils % % Neutrophils # (1.3-7.7) k/uL Lymphocytes # (1.0-4.8) k/uL Monocytes # (0-1.0) k/uL Eosinophils # (0-0.7) k/uL Basophils # (0-0.2) k/uL Anisocytosis PT (9.0-12.0) sec INR (<1.2) APTT (22.0-30.0) sec Sodium (137-145) mmol/L Potassium (3.5-5.1) mmol/L Chloride (98-107) mmol/L Carbon Dioxide (22-30) mmol/L Anion Gap mmol/L BUN (9-20) mg/dL Creatinine (0.66-1.25) mg/dL Est GFR (MDRD) Af Amer (>60 ml/min/1.73 sqM) Est GFR (MDRD) Non-Af (>60 ml/min/1.73 sqM) Glucose (74-99) mg/dL Calcium (8.4-10.2) mg/dL Total Bilirubin (0.2-1.3) mg/dL AST (17-59) U/L ALT (21-72) U/L Alkaline Phosphatase (38-126) U/L Total Protein (6.3-8.2) g/dL Albumin (3.5-5.0) g/dL Stool Occult Blood Negative (Negative) Disposition Clinical Impression: GI hemorrhage Disposition: ADMITTED IP TO THIS [facility] Referrals: Burton Cantrell MD [Primary Care Provider] - 1-2 days Decision Time: 06:53
[2017-01-06 06:14] LABS: Anisocytosis Slight; Basophils % (A) 1 %; CH 26.7; CHCM 32.2; Eosinophils # (A) 0.2 k/uL (0-0.7); Eosinophils % (A) 4 %; HCT 21.6 % (39.0-53.0); HDW 2.76; Luc % (Auto) 2; Lymphocytes % (A) 19 %; MCHC 32.3 g/dL (31.0-37.0); MCV 83.5 fL (80.0-100.0); Mean Platelet Volume 7.7; Monocytes # (A) 0.4 k/uL (0-1.0); Monocytes % (A) 8 %; Neutrophils # (A) 3.6 k/uL (1.3-7.7); Neutrophils % (A) 68 %; RBC 2.58 m/uL (4.30-5.90); RDW 16.7 % (11.5-15.5); WBC 5.2 k/uL (3.8-10.6); WBC (Perox) 5.41
[2017-01-06 06:26] LABS: INR 1.1 (<1.2); Prothrombin Time 11.2 sec (9.0-12.0)
[2017-01-06 06:31] LABS: Calcium 8.4 mg/dL (8.4-10.2); Potassium 3.8 mmol/L (3.5-5.1); Total Bilirubin 0.3 mg/dL (0.2-1.3); Total Protein 5.9 g/dL (6.3-8.2)
[2017-01-06 06:50] LABS: Creatine Kinase <20 U/L (55-170)
[2017-01-06] MEDS ORDERED: NALOXONE 0.4 MG/ML 1 ML VIAL IV PRN (06:54)
[2017-01-06 07:01] LABS: Creatine Kinase MB <0.2 ng/mL (0.0-2.4); Troponin I <0.012 ng/mL (0.000-0.034)
[2017-01-06] MEDS: PANTOPRAZOLE 40 MG/10 ML VIAL IV SCH (08:22)
[2017-01-06] MEDS: SODIUM CHLORIDE 0.9% 1,000 ML IV SCH (08:22)
[2017-01-06] MEDS ORDERED: TRIAMCINOLONE 0.1% CREAM 80 GM TUBE TOPICAL PRN (10:56)
[2017-01-06] MEDS ORDERED: ACETAMINOPHEN TAB 325 MG TAB PO PRN (10:56)
[2017-01-06] MEDS ORDERED: HYDROcodone/APAP 5-325MG 1 EACH TAB PO PRN (10:56)
--- NOTE | 2017-01-06 13:27 | P.HPIM ---
History of Present Illness H&P Date: 01/06/17 This is a 76-year-old male one of Dr. Cantrell with a previous medical history significant for hypertension and hypertensive cardiovascular disease, hyperlipidemia, vascular dementia, Parkinson disease, prostate disorder, patient apparently was recently hospitalized at [facility] after he was transferred from [facility] after falling in the morning on 12/18/2016 according to the chart notes patient did fall in the kitchen standing up eating breakfast when suddenly he was found on the ground and conscious patient did lose bladder incontinence at that time he did not have any tonic-clonic seizure patient was brought into the ER at [facility] at that time he was found to have a significant amount of cervical spine injury and the patient had a cervical collar in place he was also found to have a severe acute kidney injury with a creatinine of 9.58 due to his spine injury he was referred to [facility] for neurosurgery evaluation, patient has been complaining of increased dizziness over the last year and had a fall and of April 2016 at that time he was found to have a brain aneurysm which was controlled at that time but he has been increasingly dizzy since that time he was started on Aricept as well as carbidopa-levodopa, subsequently patient was transferred back to [facility] for physical therapy rehabilitation while he was at [facility] patient developed to have a blood in the stool and blood clot he has been on aspirin Plavix and he was referred to the ER at [facility] he was found to have a hemoglobin 7 patient was admitted to the hospital with a GI bleed got gastrology consultation was obtained and the patient will receive a unit of blood with hemodialysis patient has been getting hemodialysis through his couldn 't catheter in the right internal jugular vein. Review of Systems Constitutional: Reports malaise, Reports weakness, Reports weight loss, Denies chronic headaches, Denies chronic pain Eyes: denies blurred vision, denies bulging eye, denies decreased vision, denies diplopia Ears: bilateral: decreased hearing Ears, nose, mouth and throat: Denies dental pain, Denies dysphagia, Denies neck fullness/pressure, Denies neck lump, Denies swelling in throat, Denies sore throat Cardiovascular: Reports decreased exercise tolerance, Reports dyspnea on exertion, Reports high blood pressure, Reports shortness of breath, Denies phlebitis, Denies rapid heart beat, Denies syncope Respiratory: Reports dyspnea, Denies congestion, Denies cough, Denies cough with sputum, Denies home oxygen, Denies sleep apnea, Denies snoring, Denies wheezing Gastrointestinal: Reports BRBPR, Reports hematochezia, Reports nausea, Denies abdominal pain, Denies bloating, Denies change in bowel habits, Denies constipation, Denies excessive gas, Denies heartburn, Denies hematemesis, Denies indigestion, Denies melena, Denies vomiting Genitourinary: Reports nocturia, Denies dysuria, Denies polyuria Musculoskeletal: Reports fractures, Reports frequent falls, Reports gait dysfunction, Denies myalgias Musculoskeletal: absent: ankle pain, ankle stiffness, ankle swelling, elbow pain , elbow stiffness, elbow swelling, foot pain, foot stiffness, foot swelling, hand pain, hand stiffness, hand swelling, hip pain, hip stiffness, hip swelling , knee pain, knee stiffness, knee swelling, shoulder pain, shoulder stiffness, shoulder swelling, wrist pain, wrist stiffness, wrist swelling Integumentary: Denies pruritus, Denies rash Neurological: Reports gait dysfunction, Reports memory loss, Denies numbness Psychiatric: Reports memory loss, Denies anxiety, Denies disorientation, Denies hopelessness Endocrine: Denies fatigue, Denies weight change Past Medical History Past Medical History: Dementia, GERD/Reflux, Hyperlipidemia, Hypertension, Musculoskeletal Disorder, Neurologic Disorder, Pneumonia, Prostate Disorder, Renal Disease, Vascular Disorder (Carotid artery disease status post right carotid artery.) Additional Past Medical History / Comment(s): Pt recently admitted to [facility] for fall with LOC/cervical fractures, dizziness , uremia, hematuria, anemia, L lower lobe effusion. Other HX: Brain aneurysm with coils, renal failure with hemodialysis on Friday, Friday and Friday, parkinson's dx, balance issues, falls, BPH, diverticulosis/ polypectomy -benign, syncope yrs ago, caratid disease, bilateral cataracts. History of Any Multi-Drug Resistant Organisms: None Reported Additional Past Surgical History / Comment(s): Brain coils, RCW hemodialysis catheter, rt carotid endarterectomy, colonoscopies/benign polypectomy with last one 02/20/16. Past Anesthesia/Blood Transfusion Reactions: No Reported Reaction Smoking Status: Former smoker (Patient is a pack-a-day smoker for many years and quit many years ago.) Past Alcohol Use History: None Reported Past Drug Use History: None Reported - Past Family History Father Family Medical History: Myocardial Infarction (MA) (Father at age of 63 from heart disease.) Additional Family Medical History / Comment(s): Father had a MA at about age 59 or 60yrs. Heart disease runs strongly in pt's side of the family-CAD and MIs. Mother Family Medical History: CVA/TIA (Mother at age of 78 from CVA) Medications and Allergies Home Medications Medication Instructions Recorded Confirmed Type Aspirin EC [Ecotrin Low Dose] 81 mg PO DAILY 01/15/16 01/06/17 History Metoprolol Succinate (ER) [Toprol 75 mg PO BID 01/15/16 01/06/17 History XL] Simvastatin [Zocor] 20 mg PO HS 01/15/16 01/06/17 History Tamsulosin HCl [Flomax] 0.4 mg PO HS 01/15/16 01/06/17 History Carbidopa-Levodopa 25-100 mg 1 tab PO BID 02/28/16 01/06/17 History [Sinemet 25-100 mg] Clopidogrel Bisulfate [Plavix] 75 mg PO DAILY 12/18/16 01/06/17 History ALPRAZolam [Xanax] 0.25 mg PO TID 01/06/17 01/06/17 History Acetaminophen Tab [Tylenol Tab] 650 mg PO Q4H PRN 01/06/17 01/06/17 History Bisacodyl 10 mg RECTAL DAILY PRN 01/06/17 01/06/17 History Folic Acid-Vit B Complex-Vit C 1 mg PO DAILY 01/06/17 01/06/17 History [Nephrocaps] HYDROcodone/APAP 5-325MG [[place] 1 tab PO Q4HR PRN 01/06/17 01/06/17 History 5-325] Heparin Sodium,Porcine [Heparin 5,000 unit SQ Q8HR 01/06/17 01/06/17 History Sodium] Hydrocortisone Cream 1 applic TOPICAL QID PRN 01/06/17 01/06/17 History [Hydrocortisone 2.5% Cream] Lactulose 10 gm PO DAILY 01/06/17 01/06/17 History Melatonin 1 mg PO HS 01/06/17 01/06/17 History Na Phos,M-B/Na Phos,Di-Ba [Fleet 133 ml RECTAL DAILY PRN 01/06/17 01/06/17 History Adult] Nepro 1 can PO HS 01/06/17 01/06/17 History amLODIPine [Norvasc] 5 mg PO DAILY 01/06/17 01/06/17 History Allergies Allergy/AdvReac Type Severity Reaction Status Date / Time No Known Allergies Allergy Verified 01/06/17 07:11 Physical Exam Vitals: Vital Signs Temp Pulse Pulse Resp BP BP Pulse Ox 01/06/17 08:17 98.1 F 77 18 141/68 100 01/06/17 07:15 98.2 F 68 17 132/63 100 01/06/17 06:32 69 18 139/62 99 01/06/17 05:28 97.4 F L 73 20 139/62 94 L Intake and Output 01/05/17 01/06/17 01/06/17 22:59 06:59 14:59 Intake Total 300 Balance 300 Intake: Oral 300 Other: Weight 82.05 kg - Constitutional General appearance: average body habitus, no acute distress - EENT Eyes: anicteric sclerae, EOMI, PERRLA, no ptosis, no scleral icterus, normal appearance ENT: hard of hearing, NA/AT, normal oropharynx, no thrush, no tonsillar exudates , no tonsillar swelling Ears: bilateral: normal - Neck Neck: no lymphadenopathy, no normal ROM, other (Heart collar significant for multiple see spine fractures) Carotids: bilateral: upstroke delayed - Respiratory Respiratory: bilateral: diminished, negative: dullness, rales, rhonchi, wheezing , prolonged expiration, prolonged inspiration - Cardiovascular Rhythm: regular Heart sounds: normal: S1, S2 Abnormal Heart Sounds: systolic murmur, no rub, no click - Gastrointestinal General gastrointestinal: normal bowel sounds, soft, no splenomegaly, no tenderness, no umbilical hernia, no ventral hernia - Integumentary Integumentary: normal, normal turgor - Neurologic Neurologic: CNII-XII intact - Musculoskeletal Musculoskeletal: generalized weakness, strength equal bilaterally - Psychiatric Psychiatric: no A&O x's 3, appropriate affect, no intact judgment & insight Results CBC & Chem 7: 01/06/17 05:35 01/06/17 05:35 Labs: Abnormal Lab Results - Last 24 Hours (Table) 01/06/17 01/06/17 01/06/17 Range/Units 05:35 05:35 05:35 RBC 2.58 L (4.30-5.90) m/uL Hgb 7.0 L* (13.0-17.5) gm/dL Hct 21.6 L (39.0-53.0) % RDW 16.7 H (11.5-15.5) % APTT (22.0-30.0) sec Chloride 95 L (98-107) mmol/L Carbon Dioxide 35 H (22-30) mmol/L Creatinine 3.82 H (0.66-1.25) mg/dL Glucose 101 H (74-99) mg/dL AST 15 L (17-59) U/L Total Creatine Kinase <20 L (55-170) U/L Total Protein 5.9 L (6.3-8.2) g/dL Albumin 2.9 L (3.5-5.0) g/dL 01/06/17 Range/Units 05:35 RBC (4.30-5.90) m/uL Hgb (13.0-17.5) gm/dL Hct (39.0-53.0) % RDW (11.5-15.5) % APTT 31.0 H (22.0-30.0) sec Chloride (98-107) mmol/L Carbon Dioxide (22-30) mmol/L Creatinine (0.66-1.25) mg/dL Glucose (74-99) mg/dL AST (17-59) U/L Total Creatine Kinase (55-170) U/L Total Protein (6.3-8.2) g/dL Albumin (3.5-5.0) g/dL Thrombosis Risk Factor Assmnt - DVT/VTE Prophylaxis DVT/VTE Prophylaxis: Mechanical Prophylaxis ordered, Contraindicated - See note - Choose All That Apply Any of the Below Risk Factors Present?: Yes Each Factor Represents 1 point: Obesity (BMI >25) Other Risk Factors: Yes Each Risk Factor Represents 3 Points: Age 75 years or older Other congenital or acquired thrombophilia - If yes, enter type in comment: No Thrombosis Risk Factor Assessment Total Risk Factor Score: 4 Thrombosis Risk Factor Assessment Level: Moderate Risk Assessment and Plan Assessment: Assessment and plan: 1. Acute lower gastric disobeyed thought to be due to diverticular bleed versus upper GI bleed. Patient will be started on Protonix 40 mg IV push every 24 hours, CBC every 6 hours for the next 24 hours, type and cross and transfuse 1 unit of packed red blood cells with hemodialysis today, GI consultation. 2. Multiple C-spine fractures including comminuted fracture of the C6 and non- comminuted fracture of C5 spinal process along with comminuted fracture of C7 with multilevel foraminal narrowing and disc disease. Continue to maintain the heart collar in place. 3. Vascular dementia. Stable at this point in time. 4. Hypertension and hypertensive cardio vascular disease. Continue Toprol-XL 75 mg orally twice every day and amlodipine 5 mg orally once every day. 5. Hyperlipidemia. Continue Lipitor 20 mg orally once every day for 6. Benign prostatic hypertrophy. Continue Flomax 0.4 mg orally once every day. 7. Parkinson disease. Continue patient on Sinemet 25/100 one tablet orally twice every day. 8. Brain aneurysm status post coiling. Hold aspirin and Plavix for now. 9. DVT prophylaxis. Bilateral knee-high CODY hose. 10. GI prophylaxis. Continue patient on Protonix 40 mg IV push every 24 hours. 11. End-stage renal disease on hemodialysis Friday was a Friday, consult nephrology for dialysis order. 12. Acute blood loss anemia. Type and cross and transfuse 1 unit of packed red blood cells. 13. Patient is full code. 14. Estimate length of stay 2 midnights.
[2017-01-06 14:52] LABS: Anisocytosis Slight; Basophils % (A) 0 %; CH 26.5; CHCM 31.3; Eosinophils # (A) 0.2 k/uL (0-0.7); Eosinophils % (A) 3 %; HCT 21.7 % (39.0-53.0); HDW 2.72; HGB 7.1 gm/dL (13.0-17.5); Hypochromasia Slight; Luc # (Auto) 0.12; Luc % (Auto) 2; Lymphocytes # (A) 0.8 k/uL (1.0-4.8); Lymphocytes % (A) 16 %; MCH 27.9 pg (25.0-35.0); MCHC 32.7 g/dL (31.0-37.0); MCV 85.4 fL (80.0-100.0); Mean Platelet Volume 7.2; Monocytes # (A) 0.4 k/uL (0-1.0); Monocytes % (A) 7 %; Neutrophils # (A) 3.7 k/uL (1.3-7.7); Neutrophils % (A) 72 %; RBC 2.54 m/uL (4.30-5.90); RDW 16.4 % (11.5-15.5); WBC 5.1 k/uL (3.8-10.6); WBC (Perox) 5.18
[2017-01-06] MEDS: ALPRAZolam 0.25 MG TAB PO SCH ×2 (15:13→16:54)
[2017-01-06] MEDS: CARBIDOPA-LEVODOPA 25-100 MG 1 EACH TAB PO SCH ×2 (15:13→21:00)
[2017-01-06] MEDS: METOPROLOL SUCCINATE (ER) 25 MG TAB.ER.24H PO SCH ×2 (15:13→21:01)
[2017-01-06] MEDS: amLODIPine 5 MG TAB PO SCH (15:14)
[2017-01-06 15:51] VITALS: RESP 16
[2017-01-06] MEDS ORDERED: TAMSULOSIN 0.4 MG CAP.ER.24H PO SCH (21:00)
[2017-01-06] MEDS ORDERED: ATORVASTATIN 10 MG TAB PO SCH (21:00)
[2017-01-06] MEDS ORDERED: MELATONIN 1 MG TAB PO SCH (21:00)
[2017-01-06] MEDS ORDERED: NON-FORMULARY DRUG (Nepro 1 CAN) PO SCH (21:00)
[2017-01-07] MEDS: ALPRAZolam 0.25 MG TAB PO SCH ×3 (00:27→18:06)
[2017-01-07 07:55] LABS: Anisocytosis Slight; Basophils % (A) 1 %; CH 27.7; CHCM 31.9; Eosinophils # (A) 0.2 k/uL (0-0.7); Eosinophils % (A) 4 %; HCT 25.4 % (39.0-53.0); Luc # (Auto) 0.11; Luc % (Auto) 2; Lymphocytes # (A) 0.9 k/uL (1.0-4.8); Lymphocytes % (A) 16 %; MCH 27.5 pg (25.0-35.0); MCHC 31.5 g/dL (31.0-37.0); MCV 87.3 fL (80.0-100.0); Mean Platelet Volume 7.1; Monocytes # (A) 0.3 k/uL (0-1.0); Monocytes % (A) 6 %; Neutrophils # (A) 3.9 k/uL (1.3-7.7); Neutrophils % (A) 72 %; RBC 2.91 m/uL (4.30-5.90); WBC 5.4 k/uL (3.8-10.6); WBC (Perox) 5.84
[2017-01-07] MEDS: METOPROLOL SUCCINATE (ER) 25 MG TAB.ER.24H PO SCH (08:25)
[2017-01-07] MEDS: PANTOPRAZOLE 40 MG/10 ML VIAL IV SCH (08:25)
[2017-01-07] MEDS: amLODIPine 5 MG TAB PO SCH (08:25)
[2017-01-07] MEDS: CARBIDOPA-LEVODOPA 25-100 MG 1 EACH TAB PO SCH (08:26)
[2017-01-07] MEDS: SODIUM CHLORIDE 0.9% 1,000 ML IV SCH (08:27)
[2017-01-07] MEDS ORDERED: FOLIC ACID-VIT B COMPLEX-VIT C 1 CAP PO SCH (09:00)
--- NOTE | 2017-01-07 12:41 | P.DS ---
Providers Date of admission: 01/06/17 06:58 Expected date of discharge: 01/07/17 Attending physician: Trae Hudson Consults: 01/06/17 06:57 Consult Physician Urgent Consulting Provider: Lashonda Redmond Consult Reason/Comments: gi hemorrhage Do you want consulting provider notified?: Yes 01/07/17 09:33 Consult Physician Routine Consulting Provider: Marisela Garnica Consult Reason/Comments: ESRD Do you want consulting provider notified?: Yes Primary care physician: Burton Óscar [facility] Hospital Course: This is a 76-year-old male one of Dr. Cantrell with a previous medical history significant for hypertension and hypertensive cardiovascular disease, hyperlipidemia, vascular dementia, Parkinson disease, prostate disorder, patient apparently was recently hospitalized at [facility] after he was transferred from [facility] after falling in the morning on 12/18/2016 according to the chart notes patient did fall in the kitchen standing up eating breakfast when suddenly he was found on the ground and conscious patient did lose bladder incontinence at that time he did not have any tonic-clonic seizure patient was brought into the ER at [facility] at that time he was found to have a significant amount of cervical spine injury and the patient had a cervical collar in place he was also found to have a severe acute kidney injury with a creatinine of 9.58 due to his spine injury he was referred to [facility] for neurosurgery evaluation, patient has been complaining of increased dizziness over the last year and had a fall and of April 2016 at that time he was found to have a brain aneurysm which was controlled at that time but he has been increasingly dizzy since that time he was started on Aricept as well as carbidopa-levodopa, subsequently patient was transferred back to [facility] for physical therapy rehabilitation while he was at [facility] patient developed to have a blood in the stool and blood clot he has been on aspirin Plavix and he was referred to the ER at [facility] he was found to have a hemoglobin 7 patient was admitted to the hospital with a GI bleed got gastrology consultation was obtained and the patient will receive a unit of blood with hemodialysis patient has been getting hemodialysis through his couldn 't catheter in the right internal jugular vein. 01/07: Repeat hemoglobin this morning is 8.0 status post transfusion 1 unit packed RBCs. On salt added for Dr. Garnica regarding end-stage renal disease. Discharge Diagnoses: 1. Acute lower gastric bleed thought to be due to diverticular bleed versus upper GI bleed. 2. Multiple C-spine fractures including comminuted fracture of the C6 and non- comminuted fracture of C5 spinal process along with comminuted fracture of C7 with multilevel foraminal narrowing and disc disease. Continue to maintain the heart collar in place. 3. Vascular dementia. Stable at this point in time. 4. Hypertension and hypertensive cardio vascular disease. 5. Hyperlipidemia. 6. Benign prostatic hypertrophy. 7. Parkinson disease. 8. Brain aneurysm status post coiling. 9. End-stage renal disease on hemodialysis 10. Acute blood loss anemia. Type and cross and transfuse 1 unit of packed red blood cells. Discharge plan: Return to [facility] Impression and plan of care have been directed as dictated by the signing physician. Kaorlina Sanabria nurse practitioner acting as scribe for signing physician. Plan - Discharge Summary Discharge Rx Participant: No New Discharge Prescriptions: Continue Tamsulosin HCl [Flomax] 0.4 mg PO HS Metoprolol Succinate (ER) [Toprol XL] 75 mg PO BID Aspirin EC [Ecotrin Low Dose] 81 mg PO DAILY Simvastatin [Zocor] 20 mg PO HS Carbidopa-Levodopa 25-100 mg [Sinemet 25-100 mg] 1 tab PO BID Clopidogrel Bisulfate [Plavix] 75 mg PO DAILY Hydrocortisone Cream [Hydrocortisone 2.5% Cream] 1 applic TOPICAL QID PRN PRN Reason: Itching Na Phos,M-B/Na Phos,Di-Ba [Fleet Adult] 133 ml RECTAL DAILY PRN PRN Reason: Constipation Bisacodyl 10 mg RECTAL DAILY PRN PRN Reason: Constipation Acetaminophen Tab [Tylenol] 650 mg PO Q4H PRN PRN Reason: Fever Nepro 1 can PO HS Folic Acid-Vit B Complex-Vit C [Nephrocaps] 1 mg PO DAILY Melatonin 1 mg PO HS Lactulose 10 gm PO DAILY amLODIPine [Norvasc] 5 mg PO DAILY ALPRAZolam [Xanax] 0.25 mg PO TID #90 tab HYDROcodone/APAP 5-325MG [[place] 5-325] 1 tab PO Q4HR PRN #60 tab PRN Reason: Pain Discontinued Heparin Sodium,Porcine [Heparin Sodium] 5,000 unit SQ Q8HR Discharge Medication List Aspirin EC [Ecotrin Low Dose] 81 mg PO DAILY 01/15/16 [History] Metoprolol Succinate (ER) [Toprol XL] 75 mg PO BID 01/15/16 [History] Simvastatin [Zocor] 20 mg PO HS 01/15/16 [History] Tamsulosin HCl [Flomax] 0.4 mg PO HS 01/15/16 [History] Carbidopa-Levodopa 25-100 mg [Sinemet 25-100 mg] 1 tab PO BID 02/28/16 [History] Clopidogrel Bisulfate [Plavix] 75 mg PO DAILY 12/18/16 [History] Acetaminophen Tab [Tylenol] 650 mg PO Q4H PRN 01/06/17 [History] Bisacodyl 10 mg RECTAL DAILY PRN 01/06/17 [History] Folic Acid-Vit B Complex-Vit C [Nephrocaps] 1 mg PO DAILY 01/06/17 [History] Hydrocortisone Cream [Hydrocortisone 2.5% Cream] 1 applic TOPICAL QID PRN [History] Lactulose 10 gm PO DAILY 01/06/17 [History] Melatonin 1 mg PO HS 01/06/17 [History] Na Phos,M-B/Na Phos,Di-Ba [Fleet Adult] 133 ml RECTAL DAILY PRN 01/06/17 [ History] Nepro 1 can PO HS 01/06/17 [History] amLODIPine [Norvasc] 5 mg PO DAILY 01/06/17 [History] ALPRAZolam [Xanax] 0.25 mg PO TID #90 tab 01/07/17 [Rx] HYDROcodone/APAP 5-325MG [[place] 5-325] 1 tab PO Q4HR PRN #60 tab 01/07/17 [Rx] Follow up Appointment(s)/Referral(s): Burton Cantrell MD [Primary Care Provider] - 1 Week (at [facility]) Discharge Disposition: TRANSFER TO SNF/ECF
--- NOTE | 2017-01-07 13:14 | P.NPCON ---
History of Present Illness - Reason for Consult end stage renal disease - History of Present Illness Reason for consultation: End-stage renal disease History of present illness: Patient is a 76-year-old male seen in renal consultation for end-stage renal disease. He is maintained on hemodialysis on a Friday schedule. Patient presented from an ECF due to concern for GI bleed. Apparently was having red stools. He hemoglobin was noted to be low at 7.0 and he did receive blood transfusion this admission. Hemoglobin today is 8.0. Patient is not a very reliable historian due to language barrier. According to the nursing staff, there have been no signs of active bleeding. He's been tolerating oral intake. No vomiting or diarrhea. Hemodynamically stable. He scheduled to be discharged today and is awaiting hemodialysis. Vital signs are stable. General: The patient appeared well nourished and normally developed. HEENT: Head exam is unremarkable. Neck is without jugular venous distension. LUNGS: Lungs are clear to auscultation and percussion. Breath sounds decreased. HEART: Rate and Rhythm are regular. First and second heart sounds normal. No murmurs, rubs or gallops. ABDOMEN: Abdominal exam reveals normal bowel sounds. Non-tender and non- distended. No evidence of peritonitis. EXTREMITITES: No clubbing, cyanosis, or edema. Past Medical History Past Medical History: Dementia, GERD/Reflux, Hyperlipidemia, Hypertension, Musculoskeletal Disorder, Neurologic Disorder, Pneumonia, Prostate Disorder, Renal Disease, Vascular Disorder (Carotid artery disease status post right carotid artery.) Additional Past Medical History / Comment(s): Pt recently admitted to [facility] for fall with LOC/cervical fractures, dizziness , uremia, hematuria, anemia, L lower lobe effusion. Other HX: Brain aneurysm with coils, renal failure with hemodialysis on Friday, Friday and Friday, parkinson's dx, balance issues, falls, BPH, diverticulosis/ polypectomy -benign, syncope yrs ago, caratid disease, bilateral cataracts. History of Any Multi-Drug Resistant Organisms: None Reported Past Surgical History: Unable to Obtain Additional Past Surgical History / Comment(s): Brain coils, RCW hemodialysis catheter, rt carotid endarterectomy, colonoscopies/benign polypectomy with last one 02/20/16. Past Anesthesia/Blood Transfusion Reactions: No Reported Reaction Smoking Status: Former smoker (Patient is a pack-a-day smoker for many years and quit many years ago.) Past Alcohol Use History: None Reported Past Drug Use History: None Reported - Past Family History Father Family Medical History: Myocardial Infarction (HI) (Father at age of 63 from heart disease.) Additional Family Medical History / Comment(s): Father had a HI at about age 59 or 60yrs. Heart disease runs strongly in pt's side of the family-CAD and MIs. Mother Family Medical History: CVA/TIA (Mother at age of 78 from CVA) Medications and Allergies Home Medications Medication Instructions Recorded Confirmed Type Aspirin EC [Ecotrin Low Dose] 81 mg PO DAILY 01/15/16 01/06/17 History Metoprolol Succinate (ER) [Toprol 75 mg PO BID 01/15/16 01/06/17 History XL] Simvastatin [Zocor] 20 mg PO HS 01/15/16 01/06/17 History Tamsulosin HCl [Flomax] 0.4 mg PO HS 01/15/16 01/06/17 History Carbidopa-Levodopa 25-100 mg 1 tab PO BID 02/28/16 01/06/17 History [Sinemet 25-100 mg] Clopidogrel Bisulfate [Plavix] 75 mg PO DAILY 12/18/16 01/06/17 History Acetaminophen Tab [Tylenol] 650 mg PO Q4H PRN 01/06/17 01/06/17 History Bisacodyl 10 mg RECTAL DAILY PRN 01/06/17 01/06/17 History Folic Acid-Vit B Complex-Vit C 1 mg PO DAILY 01/06/17 01/06/17 History [Nephrocaps] Hydrocortisone Cream 1 applic TOPICAL QID PRN 01/06/17 01/06/17 History [Hydrocortisone 2.5% Cream] Lactulose 10 gm PO DAILY 01/06/17 01/06/17 History Melatonin 1 mg PO HS 01/06/17 01/06/17 History Na Phos,M-B/Na Phos,Di-Ba [Fleet 133 ml RECTAL DAILY PRN 01/06/17 01/06/17 History Adult] Nepro 1 can PO HS 01/06/17 01/06/17 History amLODIPine [Norvasc] 5 mg PO DAILY 01/06/17 01/06/17 History ALPRAZolam [Xanax] 0.25 mg PO TID #90 tab 01/07/17 Rx HYDROcodone/APAP 5-325MG [[place] 1 tab PO Q4HR PRN #60 tab 01/07/17 Rx 5-325] Allergies Allergy/AdvReac Type Severity Reaction Status Date / Time No Known Allergies Allergy Verified 01/06/17 07:11 Physical Exam Vitals: Vital Signs Temp Pulse Pulse Resp BP BP BP 01/07/17 08:00 68 16 01/07/17 07:00 97.9 F 68 16 141/49 01/06/17 22:48 98.7 F 83 16 135/65 01/06/17 19:21 98.3 F 69 69 16 117/55 117/55 01/06/17 16:22 97.4 F L 64 16 115/51 01/06/17 16:00 16 01/06/17 15:52 98.3 F 65 16 121/62 01/06/17 15:42 98.3 F 70 16 123/66 01/06/17 15:00 98.3 F 70 18 123/66 Pulse Ox 01/07/17 08:00 01/07/17 07:00 95 01/06/17 22:48 92 L 01/06/17 19:21 96 01/06/17 16:22 96 01/06/17 16:00 01/06/17 15:52 94 L 01/06/17 15:42 94 L 01/06/17 15:00 94 L Intake and Output 01/06/17 01/07/17 01/07/17 22:59 06:59 14:59 Intake Total 410 Output Total 50 Balance 410 -50 Intake: Oral 100 Blood Product 310 Rc As-1 Unit 310 [id number] Output: Urine 50 Other: # Voids 1 1 # Bowel Movements 1 Results - Lab Results Most recent lab results Calcium 8.4 mg/dL (8.4-10.2) 01/06/17 05:35 01/07/17 07:16 01/06/17 05:35 Assessment and Plan Plan: Assessment: #1. End-stage renal disease maintained on hemodialysis on a Friday schedule. #2. Acute anemia secondary to GI bleed status post blood transfusion. Hemoglobin improved. No signs of active bleeding at this time. #3. C-spine fracture with a c-collar in place. #4. Hypertension with chronic kidney disease. Controlled. Plan: Hemodialysis today with goal 2 L ultrafiltration. Potential discharge today back to ECF. I will add Len as well. Thank you for the consultation. I will continue to follow the patient with you during his hospital stay.
[2017-01-07] MEDS ORDERED: DARBEPOETIN ALFA 40 MCG/0.4 ML SYRINGE SQ SCH (13:15)
--- NOTE | 2017-01-07 13:38 | P.CONS ---
History of Present Illness - Reason for Consult Consult date: 01/07/17 GI bleed Requesting physician: Ayana Flores - History of Present Illness 76-year-old gentleman of [place] dissent speaks minimal Polish with underlying history of diverticulosis, vascular dementia, Parkinson's disease, recent fall with cervical fractures maintained in c-collar, and brain aneurysm with intervention. Patient admitted from [facility] with reports of bloody bowel movements on aspirin Plavix. History obtained from medical records and nursing staff secondary to communication and language barrier. Nursing staff reports that the ECF reported patient eating a fair amount of beets prior to admission. Additionally he has a history of end-stage renal disease hemodialysis Friday. Admission hemoglobin 7. MCV 83. Platelet 281. INR 1.1. Hemoccult stool negative. BUN 15. Creatinine 3.8. Transfuse 1 unit of blood current hemoglobin 8. No further episodes of overt bleeding such as hematemesis hematochezia since admission. Hemodynamically stable. Afebrile. On review of previous medical records hemoglobin in the 13 range in April 2016. Colonoscopy February 2016 mild sigmoid diverticulosis. Review of Systems Obtained from medical records secondary to language barrier Constitutional: Denies fever, chills, sweats, weight gain, or loss. HEENT: History of dementia. Parkinson's disease. Brain aneurysm cervical fractures. Cardiac: Negative for chest pain, arrhythmias, or palpitation. Respiratory: Negative for shortness of breath, hemoptysis, cough, or sputum production. Gastrointestinal: See HPI for pertinent findings. Genitourinary: Negative for hematuria, urgency, frequency, polyuria, dysuria, or penile discharge. Musculoskeletal: Negative for muscle aches, swelling, arthritis, and arthralgias. Neurologic: Negative for stroke or TIA. Endocrine: Negative for thyroid problems. Nephrology: End-stage renal disease hemodialysis. Skin: Negative for rash or itching. Psychiatric: Negative history for depression and anxiety All systems: negative (See HPI) Past Medical History Past Medical History: Dementia, GERD/Reflux, Hyperlipidemia, Hypertension, Musculoskeletal Disorder, Neurologic Disorder, Pneumonia, Prostate Disorder, Renal Disease, Vascular Disorder (Carotid artery disease status post right carotid artery.) Additional Past Medical History / Comment(s): Pt recently admitted to [facility] for fall with LOC/cervical fractures, dizziness , uremia, hematuria, anemia, L lower lobe effusion. Other HX: Brain aneurysm with coils, renal failure with hemodialysis on Friday, Friday and Friday, parkinson's dx, balance issues, falls, BPH, diverticulosis/ polypectomy -benign, syncope yrs ago, caratid disease, bilateral cataracts. History of Any Multi-Drug Resistant Organisms: None Reported Past Surgical History: Unable to Obtain Additional Past Surgical History / Comment(s): Brain coils, RCW hemodialysis catheter, rt carotid endarterectomy, colonoscopies/benign polypectomy with last one 02/20/16. Past Anesthesia/Blood Transfusion Reactions: No Reported Reaction Smoking Status: Former smoker (Patient is a pack-a-day smoker for many years and quit many years ago.) Past Alcohol Use History: None Reported Past Drug Use History: None Reported - Past Family History Father Family Medical History: Myocardial Infarction (NE) (Father at age of 63 from heart disease.) Additional Family Medical History / Comment(s): Father had a NE at about age 59 or 60yrs. Heart disease runs strongly in pt's side of the family-CAD and MIs. Mother Family Medical History: CVA/TIA (Mother at age of 78 from CVA) Medications and Allergies Home Medications Medication Instructions Recorded Confirmed Type Aspirin EC [Ecotrin Low Dose] 81 mg PO DAILY 01/15/16 01/06/17 History Metoprolol Succinate (ER) [Toprol 75 mg PO BID 01/15/16 01/06/17 History XL] Simvastatin [Zocor] 20 mg PO HS 01/15/16 01/06/17 History Tamsulosin HCl [Flomax] 0.4 mg PO HS 01/15/16 01/06/17 History Carbidopa-Levodopa 25-100 mg 1 tab PO BID 02/28/16 01/06/17 History [Sinemet 25-100 mg] Clopidogrel Bisulfate [Plavix] 75 mg PO DAILY 12/18/16 01/06/17 History Acetaminophen Tab [Tylenol] 650 mg PO Q4H PRN 01/06/17 01/06/17 History Bisacodyl 10 mg RECTAL DAILY PRN 01/06/17 01/06/17 History Folic Acid-Vit B Complex-Vit C 1 mg PO DAILY 01/06/17 01/06/17 History [Nephrocaps] Hydrocortisone Cream 1 applic TOPICAL QID PRN 01/06/17 01/06/17 History [Hydrocortisone 2.5% Cream] Lactulose 10 gm PO DAILY 01/06/17 01/06/17 History Melatonin 1 mg PO HS 01/06/17 01/06/17 History Na Phos,M-B/Na Phos,Di-Ba [Fleet 133 ml RECTAL DAILY PRN 01/06/17 01/06/17 History Adult] Nepro 1 can PO HS 01/06/17 01/06/17 History amLODIPine [Norvasc] 5 mg PO DAILY 01/06/17 01/06/17 History ALPRAZolam [Xanax] 0.25 mg PO TID #90 tab 01/07/17 Rx HYDROcodone/APAP 5-325MG [[place] 1 tab PO Q4HR PRN #60 tab 01/07/17 Rx 5-325] Allergies Allergy/AdvReac Type Severity Reaction Status Date / Time No Known Allergies Allergy Verified 01/06/17 07:11 Physical Exam Vitals: Vital Signs Temp Pulse Pulse Resp BP BP BP 01/07/17 08:00 68 16 01/07/17 07:00 97.9 F 68 16 141/49 01/06/17 22:48 98.7 F 83 16 135/65 01/06/17 19:21 98.3 F 69 69 16 117/55 117/55 01/06/17 16:22 97.4 F L 64 16 115/51 01/06/17 16:00 16 01/06/17 15:52 98.3 F 65 16 121/62 01/06/17 15:42 98.3 F 70 16 123/66 01/06/17 15:00 98.3 F 70 18 123/66 Pulse Ox 01/07/17 08:00 01/07/17 07:00 95 01/06/17 22:48 92 L 01/06/17 19:21 96 01/06/17 16:22 96 01/06/17 16:00 01/06/17 15:52 94 L 01/06/17 15:42 94 L 01/06/17 15:00 94 L Intake and Output 01/06/17 01/07/17 01/07/17 22:59 06:59 14:59 Intake Total 410 Output Total 50 Balance 410 -50 Intake: Oral 100 Blood Product 310 Rc As-1 Unit 310 [id number] Output: Urine 50 Other: # Voids 1 1 # Bowel Movements 1 General appearance: The patient is alert, oriented, in no acute distress. HET: Head is normocephalic and atraumatic. Pupils are equal and reactive. Oropharynx is clear without lesions. Neck: Trachea midline. C-collar in place. Heart: S1 S2. Regular rate and rhythm. Lungs: No crackles or wheezes are heard. Abdomen: Soft, nontender, nondistended with bowel sounds. No peritoneal signs. No palpable organomegaly or masses. Extremities: Normal skin color and turgor. No cyanosis, rash, ulceration, clubbing, or edema. Radial and pedal pulses are 2/4 bilaterally. Neurological: No focal deficits. Strength and sensation are grossly intact. Results CBC & Chem 7: 01/07/17 07:16 01/06/17 05:35 Labs: Abnormal Lab Results - Last 24 Hours (Table) 01/06/17 01/06/17 01/07/17 Range/Units 05:37 14:34 07:16 RBC 2.54 L 2.91 L (4.30-5.90) m/uL Hgb 7.1 L 8.0 L (13.0-17.5) gm/dL Hct 21.7 L 25.4 L (39.0-53.0) % RDW 16.4 H 17.0 H (11.5-15.5) % Lymphocytes # 0.8 L 0.9 L (1.0-4.8) k/uL Crossmatch See Detail Assessment and Plan (1) Anemia Narrative/Plan: Multifactorial underlying end-stage renal disease possible component of acute blood loss anemia possible GI bleed with reported bloody bowel movement prior to admission Hemoccult stool negative possible colonic diverticular bleed with history of diverticulosis colonoscopy February 2016. No further episodes of bleeding since admission hemoglobin stable. Current Visit: Yes Status: Acute Code(s): D64.9 - ANEMIA, UNSPECIFIED SNOMED Code(s): 897754348 (2) Diverticulosis of colon Current Visit: Yes Status: Acute Code(s): K57.30 - DVRTCLOS OF LG INT W/O PERFORATION OR ABSCESS W/O BLEEDING SNOMED Code(s): 274488103 (3) ESRD (end stage renal disease) Current Visit: Yes Status: Acute Code(s): N18.6 - END STAGE RENAL DISEASE SNOMED Code(s): 09713229 (4) Parkinson disease Current Visit: Yes Status: Acute Code(s): G20 - PARKINSON'S DISEASE SNOMED Code(s): 27608401 (5) Barrier to communication Current Visit: Yes Status: Acute Code(s): QAX4154 - SNOMED Code(s): 503598166 (6) Brain aneurysm Current Visit: Yes Status: Acute Code(s): I67.1 - CEREBRAL ANEURYSM, NONRUPTURED SNOMED Code(s): 857372855 (7) Cervical spine fracture Current Visit: Yes Status: Acute Code(s): S12.9XXA - FRACTURE OF NECK, UNSPECIFIED, INITIAL ENCOUNTER SNOMED Code(s): 783512502 Plan: 1. Agreeable for discharge to ECF with CBC monitoring. Advised GI prophylaxis upon discharge. Endoscopic exams not planned at this time. Conservative measures. Thank you for this kind referral and the opportunity to participate in the care of your patient. This consultation was discussed with Dr. Sanz. The impression and plan of care have been directed as dictated.
[2017-01-07 14:35] VITALS: BP 148/52; PULSE 67; TEMP 98
== END 2017-01-07 19:50 | DRG 377 ==
LOC: EC 05:27 → 5MS5E 06:58
PROVIDERS: ADMIT Internal Medicine; ATTEND Internal Medicine
PROC: 30233N1 Transfusion of Nonautologous Red Blood Cells into Peripheral Vein, Percutaneous Approach (ICD-10-PCS; principal; 2017-01-06)
DX: K57.31 Diverticulosis of large intestine without perforation or abscess with bleeding (principal); N18.6 End stage renal disease; S12.400A Unspecified displaced fracture of fifth cervical vertebra, initial encounter for closed fracture; D62 Acute posthemorrhagic anemia; I13.11 Hypertensive heart and chronic kidney disease without heart failure, with stage 5 chronic kidney disease, or end stage renal disease; S12.500A Unspecified displaced fracture of sixth cervical vertebra, initial encounter for closed fracture; S12.600A Unspecified displaced fracture of seventh cervical vertebra, initial encounter for closed fracture; G20 Parkinson's disease; I67.1 Cerebral aneurysm, nonruptured; K92.2 Gastrointestinal hemorrhage, unspecified; F01.50 Vascular dementia, unspecified severity, without behavioral disturbance, psychotic disturbance, mood disturbance, and anxiety; E78.5 Hyperlipidemia, unspecified; K21.9 Gastro-esophageal reflux disease without esophagitis; N40.0 Benign prostatic hyperplasia without lower urinary tract symptoms; H26.9 Unspecified cataract; R32 Unspecified urinary incontinence; M50.30 Other cervical disc degeneration, unspecified cervical region; Z79.02 Long term (current) use of antithrombotics/antiplatelets; Z79.899 Other long term (current) drug therapy; Z79.82 Long term (current) use of aspirin; Z99.2 Dependence on renal dialysis; Z87.891 Personal history of nicotine dependence; Z82.49 Family history of ischemic heart disease and other diseases of the circulatory system; W18.30XA Fall on same level, unspecified, initial encounter; Y92.000 Kitchen of unspecified non-institutional (private) residence as the place of occurrence of the external cause
CPT/HCPCS: 36415; 80053; 82272; 82550; 82553; 84484; 85025; 85610; 85730; 86850; 86900; 86901; 86920; 90935; 96374; 99285

== ENCOUNTER 2018-11-24 23:50 | Inpatient (IN) | payer MEDICARE, OTHER ==
--- NOTE | 2018-11-25 00:11 | ED ---
Fever HPI - General Chief Complaint: Fever Stated Complaint: fever Time Seen by Provider: 11/24/18 23:50 Source: family, EMS, RN notes reviewed Mode of arrival: EMS Limitations: language barrier - History of Present Illness Initial Comments: This is a 78-year-old male was brought in from a long-term for evaluation of a fever. Fever apparently started yesterday. He has been recently on Keflex until the second of this month for urinary tract infection. Temperature is appearing to 101.5 just was noted by staff the long-term have apparently upp er lobe findings on auscultation per paramedics appear to be more lower lobe. Patient himself is a poor historian he is very guarded. He was here in 80s which she doesn't have information is received from paramedics as well as family. No reports of overt rhinorrhea or cough no other modifying factors MD Complaint: fever - Related Data Home Medications Medication Instructions Recorded Confirmed Aspirin EC [Ecotrin Low Dose] 81 mg PO DAILY@0800 01/15/16 11/25/18 Metoprolol Succinate (ER) [Toprol 50 mg PO BID@0800,2100 01/15/16 11/25/18 XL] Carbidopa-Levodopa 25-100 mg 1 tab PO BID@0800,1700 02/28/16 11/25/18 [Sinemet 25-100 mg] Clopidogrel Bisulfate [Plavix] 75 mg PO DAILY@0800 12/18/16 11/25/18 Acetaminophen Tab [Tylenol] 650 mg PO Q4H PRN 01/06/17 11/25/18 Bisacodyl 10 mg RECTAL DAILY PRN 01/06/17 11/25/18 Hydrocortisone Cream 1 applic TOPICAL QID PRN 01/06/17 11/25/18 [Hydrocortisone 2.5% Cream] Lactulose 10 gm PO DAILY PRN 01/06/17 11/25/18 Nepro 1 can PO BID@0800,1200 01/06/17 11/25/18 Calcium Acetate [PhosLo] 667 mg PO DAILY@1200 11/25/18 11/25/18 Cholecalciferol (Vitamin D3) 2,000 unit PO DAILY@1700 11/25/18 11/25/18 [Vitamin D3] Lidocaine-Prilocaine Cream [Emla 1 applic TOPICAL MOWEFR 11/25/18 11/25/18 Cream 2.5%/2.5%] Loperamide HCl [Imodium A-D] 4 mg PO BID PRN 11/25/18 11/25/18 Melatonin 5 mg PO HS@2100 11/25/18 11/25/18 Metoprolol Succinate [Toprol XL] 25 mg PO BID@0800,2100 11/25/18 11/25/18 Potassium Chloride ER [K-Dur 10] 10 meq PO DAILY@0800 11/25/18 11/25/18 Lucero-Rustam 1 tab PO DAILY@2100 11/25/18 11/25/18 busPIRone HCL [Buspar] 7.5 mg PO DAILY@1700 11/25/18 11/25/18 guaiFENesin SYRUP 100MG/5ML 200 mg PO Q4H PRN 11/25/18 11/25/18 [Robitussin] rOPINIRole HCL [Requip] 0.25 mg PO TID@0800,1200,2100 11/25/18 11/25/18 Previous Rx's Medication Instructions Recorded HYDROcodone/APAP 5-325MG [[place] 1 tab PO Q4HR PRN #60 tab 01/07/17 5-325] ALPRAZolam [Xanax] 0.25 mg PO TID PRN #60 tab 11/27/18 Atorvastatin [Lipitor] 10 mg PO HS tab 11/27/18 Folic Acid-Vit B Complex-Vit C 1 each PO DAILY cap 11/27/18 [Nephrocaps] Ipratropium-Albuterol Nebulize 3 ml INHALATION AC-TID #90 neb 11/27/18 [Duoneb 0.5 mg-3 mg/3 ml Soln] Levofloxacin [Levaquin] 500 mg PO Q48H #5 tab 11/27/18 amLODIPine [Norvasc] 5 mg PO DAILY tab 11/27/18 guaiFENesin-DM 600/30MG [Mucinex 1 each PO Q12HR #20 tab.er.12h 11/27/18 Dm] Allergies Allergy/AdvReac Type Severity Reaction Status Date / Time No Known Allergies Allergy Verified 11/25/18 07:23 Review of Systems ROS Statement: Those systems with pertinent positive or pertinent negative responses have been documented in the HPI. ROS Other: All systems not noted in ROS Statement are negative. Past Medical History Past Medical History: Dementia, GERD/Reflux, Hyperlipidemia, Hypertension, Musculoskeletal Disorder, Neurologic Disorder, Pneumonia, Prostate Disorder, Renal Disease, Vascular Disorder Additional Past Medical History / Comment(s): Pt recently admitted to [facility] for fall with LOC/cervical fractures, dizziness, uremia, hematuria, anemia, L lower lobe effusion. Other HX: Brain aneurysm with coils, renal failure with hemodialysis on Friday, Friday and Friday, parkinson's dx, balance issues, falls, BPH, diverticulosis/ polypectomy-benign, syncope yrs ago, caratid disease, bilateral cataracts. History of Any Multi-Drug Resistant Organisms: None Reported Past Surgical History: Unable to Obtain Additional Past Surgical History / Comment(s): Brain coils, RCW hemodialysis catheter, rt carotid endarterectomy, colonoscopies/benign polypectomy with last one 02/20/16. Past Anesthesia/Blood Transfusion Reactions: No Reported Reaction Past Psychological History: No Psychological Hx Reported Smoking Status: Former smoker Past Alcohol Use History: None Reported Past Drug Use History: None Reported - Past Family History Father Family Medical History: Myocardial Infarction (MN) (Father at age of 63 from heart disease.) Additional Family Medical History / Comment(s): Father had a MN at about age 59 or 60yrs. Heart disease runs strongly in pt's side of the family-CAD and MIs. Mother Family Medical History: CVA/TIA (Mother at age of 78 from CVA) General Exam - General Exam Comments Initial Comments: Is a well-developed well-nourished awake alert but confused appearing male he does demonstrate chewing type movement Limitations: language barrier General appearance: alert, in no apparent distress Head exam: Present: atraumatic, normocephalic, normal inspection Eye exam: Present: normal appearance, PERRL, EOMI. Absent: scleral icterus, conjunctival injection, periorbital swelling ENT exam: Present: mucous membranes moist Neck exam: Present: normal inspection, full ROM, other Respiratory exam: Present: decreased breath sounds Cardiovascular Exam: Present: regular rate, normal rhythm, normal heart sounds. Absent: systolic murmur, diastolic murmur, rubs, gallop, clicks GI/Abdominal exam: Present: soft, normal bowel sounds. Absent: distended, tenderness, guarding, rebound, rigid Extremities exam: Present: normal inspection, full ROM, normal capillary refill. Absent: tenderness, pedal edema, joint swelling, calf tenderness Back exam: Present: normal inspection Neurological exam: Present: alert, oriented X3, CN II-XII intact Psychiatric exam: Present: normal affect, normal mood Skin exam: Present: warm, dry, intact, normal color. Absent: rash Course Vital Signs 11/24/18 11/25/18 11/25/18 23:56 01:04 01:27 Temperature 98.9 F Pulse Rate 96 106 H Respiratory 18 20 20 Rate Blood Pressure 106/59 120/87 O2 Sat by Pulse 93 L 93 L Oximetry 11/25/18 02:42 Temperature Pulse Rate 112 H Respiratory 20 Rate Blood Pressure 106/54 O2 Sat by Pulse 96 Oximetry - Reevaluation(s) Reevaluation #1: 11/25/18 00:23 The patient's care is endorsed to Dr. Salcedo at our shift change Medical Decision Making - Medical Decision Making The patient had been endorsed to Dr. Salcedo at the end of our shift change. Patient was ultimately found to have bilateral lower lobe pneumonia with more ev idence of infiltrate in the left versus the right. Patient was admitted to Dr. Cantrell service. Place an IV antibiotics. - Lab Data Result diagrams: 11/26/18 07:15 11/26/18 07:15 Lab Results 11/25/18 11/25/18 11/25/18 Range/Units 00:47 00:47 00:47 WBC 15.6 H (3.8-10.6) k/uL RBC 3.97 L (4.30-5.90) m/uL Hgb 11.7 L (13.0-17.5) gm/dL Hct 35.7 L (39.0-53.0) % MCV 89.9 (80.0-100.0) fL MCH 29.4 (25.0-35.0) pg MCHC 32.8 (31.0-37.0) g/dL RDW 14.7 (11.5-15.5) % Plt Count 308 (150-450) k/uL Neutrophils % 88 % Lymphocytes % 7 % Monocytes % 3 % Eosinophils % 0 % Basophils % 0 % Neutrophils # 13.8 H (1.3-7.7) k/uL Lymphocytes # 1.1 (1.0-4.8) k/uL Monocytes # 0.5 (0-1.0) k/uL Eosinophils # 0.0 (0-0.7) k/uL Basophils # 0.1 (0-0.2) k/uL Poikilocytosis Slight Sodium 141 (137-145) mmol/L Potassium 3.6 (3.5-5.1) mmol/L Chloride 100 (98-107) mmol/L Carbon Dioxide 33 H (22-30) mmol/L Anion Gap 8 mmol/L BUN 30 H (9-20) mg/dL Creatinine 2.52 H (0.66-1.25) mg/dL Est GFR (CKD-EPI)AfAm 27 (>60 ml/min/1.73 sqM) Est GFR (CKD-EPI)NonAf 23 (>60 ml/min/1.73 sqM) Glucose 120 H (74-99) mg/dL Plasma Lactic Acid Froilan (0.7-2.0) mmol/L Calcium 9.2 (8.4-10.2) mg/dL Magnesium 1.9 (1.6-2.3) mg/dL Total Bilirubin 0.5 (0.2-1.3) mg/dL AST 23 (17-59) U/L ALT 10 L (21-72) U/L Alkaline Phosphatase 92 (38-126) U/L Creatine Kinase <20 L (55-170) U/L Total Protein 7.1 (6.3-8.2) g/dL Albumin 3.7 (3.5-5.0) g/dL Urine Color Yellow Urine Appearance Clear (Clear) Urine pH 7.0 (5.0-8.0) Ur Specific [place] 1.017 (1.001-1.035) Urine Protein 1+ H (Negative) Urine Glucose (UA) Negative (Negative) Urine Ketones Negative (Negative) Urine Blood Negative (Negative) Urine Nitrite Negative (Negative) Urine Bilirubin Negative (Negative) Urine Urobilinogen 2.0 (<2.0) mg/dL Ur Leukocyte Esterase Small H (Negative) Urine RBC 5 (0-5) /hpf Urine WBC 3 (0-5) /hpf Ur Squamous Epith Cells <1 (0-4) /hpf Hyaline Casts 1 (0-2) /lpf Influenza Type A RNA (Not Detectd) Influenza Type B (PCR) (Not Detectd) 11/25/18 11/25/18 Range/Units 00:47 00:47 WBC (3.8-10.6) k/uL RBC (4.30-5.90) m/uL Hgb (13.0-17.5) gm/dL Hct (39.0-53.0) % MCV (80.0-100.0) fL MCH (25.0-35.0) pg MCHC (31.0-37.0) g/dL RDW (11.5-15.5) % Plt Count (150-450) k/uL Neutrophils % % Lymphocytes % % Monocytes % % Eosinophils % % Basophils % % Neutrophils # (1.3-7.7) k/uL Lymphocytes # (1.0-4.8) k/uL Monocytes # (0-1.0) k/uL Eosinophils # (0-0.7) k/uL Basophils # (0-0.2) k/uL Poikilocytosis Sodium (137-145) mmol/L Potassium (3.5-5.1) mmol/L Chloride (98-107) mmol/L Carbon Dioxide (22-30) mmol/L Anion Gap mmol/L BUN (9-20) mg/dL Creatinine (0.66-1.25) mg/dL Est GFR (CKD-EPI)AfAm (>60 ml/min/1.73 sqM) Est GFR (CKD-EPI)NonAf (>60 ml/min/1.73 sqM) Glucose (74-99) mg/dL Plasma Lactic Acid Froilan 1.2 (0.7-2.0) mmol/L Calcium (8.4-10.2) mg/dL Magnesium (1.6-2.3) mg/dL Total Bilirubin (0.2-1.3) mg/dL AST (17-59) U/L ALT (21-72) U/L Alkaline Phosphatase (38-126) U/L Creatine Kinase (55-170) U/L Total Protein (6.3-8.2) g/dL Albumin (3.5-5.0) g/dL Urine Color Urine Appearance (Clear) Urine pH (5.0-8.0) Ur Specific [place] (1.001-1.035) Urine Protein (Negative) Urine Glucose (UA) (Negative) Urine Ketones (Negative) Urine Blood (Negative) Urine Nitrite (Negative) Urine Bilirubin (Negative) Urine Urobilinogen (<2.0) mg/dL Ur Leukocyte Esterase (Negative) Urine RBC (0-5) /hpf Urine WBC (0-5) /hpf Ur Squamous Epith Cells (0-4) /hpf Hyaline Casts (0-2) /lpf Influenza Type A RNA Not Detected (Not Detectd) Influenza Type B (PCR) Not Detected (Not Detectd) Disposition Clinical Impression: Community acquired bilateral lower lobe pneumonia, Hypoxemia, Dementia, End stage renal disease Disposition: ADMITTED IP TO THIS HOSP Condition: Fair
[2018-11-25 01:06] LABS: Basophils # (A) 0.1 k/uL (0-0.2); Basophils % (A) 0 %; Eosinophils % (A) 0 %; HCT 35.7 % (39.0-53.0); HGB 11.7 gm/dL (13.0-17.5); Lymphocytes # (A) 1.1 k/uL (1.0-4.8); Lymphocytes % (A) 7 %; MCH 29.4 pg (25.0-35.0); MCHC 32.8 g/dL (31.0-37.0); MCV 89.9 fL (80.0-100.0); Mean Platelet Volume 6.2; Monocytes # (A) 0.5 k/uL (0-1.0); Monocytes % (A) 3 %; Neutrophils # (A) 13.8 k/uL (1.3-7.7); Neutrophils % (A) 88 %; Platelet Count 308 k/uL (150-450); Poikilocytosis Slight; RBC 3.97 m/uL (4.30-5.90); RDW 14.7 % (11.5-15.5); WBC 15.6 k/uL (3.8-10.6)
[2018-11-25 01:08] LABS: Appearance,Urine Clear (Clear); Bilirubin,Urine Negative (Negative); Blood,Urine Negative (Negative); Color,Urine Yellow; Glucose,Urine (UA) Negative (Negative); Hyaline Casts,Urine 1 /lpf (0-2); Ketones,Urine Negative (Negative); Leukocyte Esterase,Urine Small (Negative); Nitrite,Urine Negative (Negative); Protein,Urine 1+ (Negative); RBC,Urine 5 /hpf (0-5); Specific Gravity,Urine 1.017 (1.001-1.035); Squamous Epithelial Cell,Urine <1 /hpf (0-4)
[2018-11-25 01:15] LABS: ALT 10 U/L (21-72); AST 23 U/L (17-59); African American GFR (CKD) 27 (>60 ml/min/1.73 sqM); Albumin 3.7 g/dL (3.5-5.0); Alkaline Phosphatase 92 U/L (38-126); Anion Gap 8 mmol/L; Blood Urea Nitrogen 30 mg/dL (9-20); Calcium 9.2 mg/dL (8.4-10.2); Carbon Dioxide 33 mmol/L (22-30); Chloride 100 mmol/L (98-107); Creatine Kinase <20 U/L (55-170); Glucose 120 mg/dL (74-99); Magnesium 1.9 mg/dL (1.6-2.3); Potassium 3.6 mmol/L (3.5-5.1); Sodium 141 mmol/L (137-145); Total Bilirubin 0.5 mg/dL (0.2-1.3); Total Protein 7.1 g/dL (6.3-8.2)
--- NOTE | 2018-11-25 01:15 | XR ---
EXAMINATION TYPE: XR chest 2V DATE OF EXAM: 11/25/2018 COMPARISON: 12/18/2016 HISTORY: Fever TECHNIQUE: Frontal and lateral views of the chest are obtained. FINDINGS: Heart size is normal. There is no heart failure. There is some patchy airspace infiltrate at the lung bases and more on the right side. There is no definite pleural effusion. There are chest leads. IMPRESSION: Mild bilateral lower lobe pneumonia that is improved compared to last exam. No heart garo lure seen. Pulmonary vascularity improved compared to old exam.
[2018-11-25] MEDS ORDERED: PIPERACILLIN-TAZOBACTAM 3.375 GM in SODIUM CHLORIDE 0.9% 100 ML IVPB STA (01:56)
[2018-11-25] MEDS ORDERED: LEVOFLOXACIN 750MG-D5W PMX 750 MG in DEXTROSE/WATER 1 150ML.BAG IVPB STA (01:56)
[2018-11-25] MEDS ORDERED: PNEUMONIA PROTOCOL UTILIZED 1 EACH MISC PO PRN (01:56)
[2018-11-25] MEDS ORDERED: HYDROcodone/APAP 5-325MG 1 EACH TAB PO PRN (02:01)
[2018-11-25] MEDS ORDERED: NA PHOS,M-B/NA PHOS,DI-BA 133 ML ENEMA RECTAL PRN (02:01)
[2018-11-25] MEDS ORDERED: ACETAMINOPHEN TAB 325 MG TAB PO PRN (02:01)
[2018-11-25] MEDS ORDERED: TRIAMCINOLONE ACET 0.1% OINTMENT 15 GM TUBE TOPICAL PRN (02:01)
[2018-11-25] MEDS ORDERED: BISACODYL 10 MG SUPP RECTAL PRN (02:01)
[2018-11-25] MEDS: ALPRAZolam 0.25 MG TAB PO SCH ×3 (09:03→22:18)
[2018-11-25] MEDS: ASPIRIN 81 MG PO SCH (11:42)
[2018-11-25] MEDS: CARBIDOPA-LEVODOPA 25-100 MG 1 EACH TAB PO SCH ×2 (11:42→22:16)
[2018-11-25] MEDS: amLODIPine 5 MG TAB PO SCH (11:42)
[2018-11-25] MEDS: CLOPIDOGREL 75 MG TAB PO SCH (11:42)
[2018-11-25] MEDS: FOLIC ACID-VIT B COMPLEX-VIT C 1 CAP PO SCH (11:43)
[2018-11-25] MEDS: METOPROLOL SUCCINATE (ER) 50 MG TAB.ER.24H PO SCH ×2 (11:43→22:22)
[2018-11-25] MEDS: LACTULOSE 20 GM/30 ML CUP PO SCH (11:43)
--- NOTE | 2018-11-25 12:24 | P.HPIM ---
History of Present Illness H&P Date: 11/25/18 Chief Complaint: Fever and chills, worsening confusion, bilateral pneumonia, aspiration, tac 78-year-old male one of my patient from [facility] for the last 3 years who is known to have advanced dementia, Parkinson disease, end-stage renal disease on hemodialysis 3 times a week, severe PAD, previous history of intracranial hemorrhage with aneurysm, cardiomyopathy, arrhythmia, recurrent infection, slight worsening nutrition lately with significant decline physically and ment ally who developed to have low-grade temperature for 48 hours become much worse last night with temperature 4-1.5 patient was having rigors and not feeling well become more confused and less responsive with slightly low oxygen level worsening course cough over both lung cifuentes. Patient was sent to the emergency department at [facility] from [facility] to where was seen and evaluated found to have mild hypoxia, mild tachycardia, chest x-ray showed by basilar pneumonia worse on the left side than the right side. Patient was giving 1 g of Rocephin and started on Levaquin Will admit patient to the hospital for the above problem. Review of Systems CONSTITUTIONAL: Well-developed mild respiratory distress looks older than his age. EYES: No icterus sclerae, no conjunctivitis. EARS, NOSE, MOUTH, THROAT, and FACE: No sore throat, lymphadenopathy, carotid bruits or deformity. RESPIRATORY: Positive shortness of breath cough wheezes. CARDIOVASCULAR: Positive tachycardia no angina. GASTROINTESTINAL: No Abd pain, Nausea or vomiting, no Diarrhea or constipation, No GI Bleed, no distention or masses. GENITOURINARY: Positive incontinence with decrease in urine output mostly on hemodialysis. INTEGUMENT/BREAST: Negative for any muscular injury with mild osteoarthritis.. HEMATOLOGIC/LYMPHATIC: Negative for bleed or purpura. MUSCULOSKELTAL: Negative for Myalgia or arthralgia. NEURLOGICAL: Parkinson disease with significant memory loss. BEHAVIORAL/PSYCH: Negative. ENDOCRINE: Negative. Past Medical History Past Medical History: Heart Failure, Dementia, GERD/Reflux, Hyperlipidemia, Hypertension, Musculoskeletal Disorder, Neurologic Disorder, Pneumonia, Prostate Disorder, Renal Disease, Vascular Disorder Additional Past Medical History / Comment(s): Other HX: Dysphagia, brain aneurysm with coils, renal failure with hemodialysis on Friday, Friday and Friday, Parkinson's dx, balance issues, multiple falls, BPH, diverticulosis/ polypectomy-benign, syncope yrs ago, caratid disease, bilateral cataracts. History of Any Multi-Drug Resistant Organisms: None Reported Past Surgical History: Unable to Obtain Additional Past Surgical History / Comment(s): Brain coils, RCW hemodialysis catheter, rt carotid endarterectomy, colonoscopies/benign polypectomy with last one 02/20/16. Past Anesthesia/Blood Transfusion Reactions: No Reported Reaction Past Psychological History: No Psychological Hx Reported Additional Psychological History / Comment(s): Pt resides at [facility]. Pt understands a small amount of Nigerian, he can read Nigerian some and can sign his name in Nigerian. His primary language is Serbian. He understands some Nigerian but not much. He will point to an area an say "sick". Smoking Status: Never smoker Past Alcohol Use History: None Reported Additional Past Alcohol Use History / Comment(s): has smoked for 50 years, <1ppd quit 1 month ago (01/2016). Past Drug Use History: None Reported - Past Family History Father Family Medical History: Myocardial Infarction ([place]) Additional Family Medical History / Comment(s): Father had a [place] at about age 59 or 60yrs. Heart disease runs strongly in pt's side of the family-CAD and MIs. Mother Family Medical History: CVA/TIA Medications and Allergies Home Medications Medication Instructions Recorded Confirmed Type Aspirin EC [Ecotrin Low Dose] 81 mg PO DAILY@0800 01/15/16 11/25/18 History Metoprolol Succinate (ER) [Toprol 50 mg PO BID@0800,2100 01/15/16 11/25/18 History XL] Carbidopa-Levodopa 25-100 mg 1 tab PO BID@0800,1700 02/28/16 11/25/18 History [Sinemet 25-100 mg] Clopidogrel Bisulfate [Plavix] 75 mg PO DAILY@0800 12/18/16 11/25/18 History Acetaminophen Tab [Tylenol] 650 mg PO Q4H PRN 01/06/17 11/25/18 History Bisacodyl 10 mg RECTAL DAILY PRN 01/06/17 11/25/18 History Hydrocortisone Cream 1 applic TOPICAL QID PRN 01/06/17 11/25/18 History [Hydrocortisone 2.5% Cream] Lactulose 10 gm PO DAILY PRN 01/06/17 11/25/18 History Nepro 1 can PO BID@0800,1200 01/06/17 11/25/18 History HYDROcodone/APAP 5-325MG [[place] 1 tab PO Q4HR PRN #60 tab 01/07/17 11/25/18 Rx 5-325] Calcium Acetate [Phoslo] 667 mg PO DAILY@1200 11/25/18 11/25/18 History Cholecalciferol (Vitamin D3) 2,000 unit PO DAILY@1700 11/25/18 11/25/18 History [Vitamin D3] Lidocaine-Prilocaine Cream [[place] 1 applic TOPICAL MOWEFR 11/25/18 11/25/18 History Cream 2.5%/2.5%] Loperamide HCl [Imodium A-D] 4 mg PO BID PRN 11/25/18 11/25/18 History Melatonin 5 mg PO HS@2100 11/25/18 11/25/18 History Metoprolol Succinate [Toprol XL] 25 mg PO BID@0800,2100 11/25/18 11/25/18 History Potassium Chloride ER [K-Dur 10] 10 meq PO DAILY@0800 11/25/18 11/25/18 History Lucero-Rustam 1 tab PO DAILY@2100 11/25/18 11/25/18 History busPIRone HCL [Buspar] 7.5 mg PO DAILY@1700 11/25/18 11/25/18 History guaiFENesin SYRUP 100MG/5ML 200 mg PO Q4H PRN 11/25/18 11/25/18 History [Robitussin] rOPINIRole HCL [Requip] 0.25 mg PO TID@0800,1200,2100 11/25/18 11/25/18 History Allergies Allergy/AdvReac Type Severity Reaction Status Date / Time No Known Allergies Allergy Verified 11/25/18 07:23 Physical Exam Vitals: Vital Signs Temp Pulse Pulse Resp BP BP Pulse Ox 11/25/18 03:42 98.8 F 117 H 16 97/52 94 L 11/25/18 02:42 112 H 20 106/54 96 11/25/18 01:27 106 H 20 120/87 93 L 11/25/18 01:04 20 11/24/18 23:56 98.9 F 96 18 106/59 93 L Intake and Output 11/24/18 11/25/18 11/25/18 22:59 06:59 14:59 Intake Total 250 Output Total 200 Balance 50 Intake: Intake, IV Titration 250 Amount Levofloxacin 750Mg-D5w 150 Pmx 750 mg In Dextrose/ Water 1 150ml.bag @ 100 mls/hr IVPB ONCE STA Rx#: [id number] Piperacillin-Tazobactam 3 100 .375 gm In Sodium Chloride 0.9% 100 ml @ 200 mls/hr IVPB ONCE STA Rx#:[id number] Output: Urine 200 Other: Weight 72.575 kg General Appearance: Alert, severely confuse, looks older than his age still having mild shortness of breath. Neck HEENT: Supple, no lymphadenopathy, no thyroid enlargement, no carotid bruits. Lungs: Decreased breath some bilateral fine rhonchi past crackles in the bases worse in the left and the right side with mild expiratory wheezes. Chest Wall: Decrease expansion with deep inspiration no tenderness and no deformity was found on exam, no costochondral pain or discomfort. Heart: Regular rate and rhythm, S1, S2 positive S3 positive arrhythmia. With ejection systolic murmur. Back: Symmetric, no curvature, ROM normal, no CVA tenderness. Abdomen: Soft, non-tender, bowel sounds active all four quadrants, no masses, no organomegaly. Extremities: Extremities normal, atraumatic, no cyanosis or edema. Pulses: Decreased bilaterally. Skin: Skin color, texture, tugor normal, no rashes or lesions. Neurologic: Alert oriented with significant confusion his Coumadin medication and speech is very limited moving both side equally still have mild resting tremor very rigid expression face typical for Parkinson with significant memory loss. Results CBC & Chem 7: 11/25/18 00:47 11/25/18 00:47 Labs: Abnormal Lab Results - Last 24 Hours (Table) 11/25/18 11/25/18 11/25/18 Range/Units 00:47 00:47 00:47 WBC 15.6 H (3.8-10.6) k/uL RBC 3.97 L (4.30-5.90) m/uL Hgb 11.7 L (13.0-17.5) gm/dL Hct 35.7 L (39.0-53.0) % Neutrophils # 13.8 H (1.3-7.7) k/uL Carbon Dioxide 33 H (22-30) mmol/L BUN 30 H (9-20) mg/dL Creatinine 2.52 H (0.66-1.25) mg/dL Glucose 120 H (74-99) mg/dL ALT 10 L (21-72) U/L Creatine Kinase <20 L (55-170) U/L Urine Protein 1+ H (Negative) Ur Leukocyte Esterase Small H (Negative) Thrombosis Risk Factor Assmnt - DVT/VTE Prophylaxis DVT/VTE Prophylaxis: Pharmacologic Prophylaxis ordered, Mechanical Prophylaxis ordered - Choose All That Apply Any of the Below Risk Factors Present?: Yes Each Factor Represents 1 point: Abnormal pulmonary function (COPD), Medical pt on bed rest Other Risk Factors: Yes Each Risk Factor Represents 2 Points: Patient confined to bed Each Risk Factor Represents 3 Points: Age 75 years or older Other congenital or acquired thrombophilia - If yes, enter type in comment: No Thrombosis Risk Factor Assessment Total Risk Factor Score: 7 Thrombosis Risk Factor Assessment Level: High Risk Assessment and Plan Plan: 1 acute respiratory failure: Secondary to bilateral pneumonia most likely aspiration with positive for gram-negative, with worsening COPD, will continue updraft, O2 and antibiotics. 2 aspiration pneumonia most likely gram-negative will cover patient with 1 g of Rocephin in the emergency room and continue Levaquin daily for now continue oral antibiotic less culture came back to family. 3 fever and chills with leukocytosis: Most likely secondary to aspiration pneumonia with worsening early sepsis patient be on antibiotic hydration. 4 end-stage renal disease on hemodialysis 3 times a week, CONSULT NEPHROLOGY AND CONTINUE DIALYSIS. 5 PARKINSON DISEASE: REMAIN ON SINEMET AND ROPINIROLE CONTINUE BOTH MEDICATION. 6 ATHEROSCLEROTIC HEART DISEASE: WITH NO CHEST PAIN OR ANGINA LATELY REMAIN ON METOPROLOL PLAVIX AND NITRO. 8 ARRHYTHMIA: MOSTLY NONSUSTAINED A. FIB HE IS NOT ON ANY ANTICOAGULATION REMAIN ON METOPROLOL TOTAL OF 75 MG TWICE A DAY. 9 chronic COPD: Patient will continue on updraft treatment with DuoNeb and Pulmicort continue O2. 10 confusion/anxiety and panic attacks: Remain on alprazolam along with BuSpar as needed. 11 chronic pain syndrome: Has been on hydrocodone 5/325 mg every 6 hours as needed for chronic lower back pain. 12 GERD/GI prophylaxis: Patient will be on Pepcid 20 mg daily. 13 DVT prophylaxis: Patient will be on heparin 5000 units cutaneous twice a day. CODE STATUS: DO NOT RESUSCITATE. Admit patient to inpatient status for more than 2 nights.
[2018-11-25] MEDS ORDERED: LEVOFLOXACIN 500MG-D5W PMX 500 MG in DEXTROSE/WATER 1 100ML.BAG IVPB SCH (21:00)
[2018-11-25] MEDS ORDERED: MELATONIN 1 MG TAB PO SCH (21:00)
[2018-11-25] MEDS ORDERED: NEPRO PO SCH (21:00)
[2018-11-25] MEDS: HEPARIN SODIUM,PORCINE 5,000 UNIT/ML 1 ML VIAL SQ SCH (22:16)
[2018-11-25] MEDS: ATORVASTATIN 10 MG TAB PO SCH (22:16)
--- NOTE | 2018-11-25 22:22 | CONS ---
CONSULTATION REASON FOR CONSULT: End-stage renal disease. HISTORY OF PRESENT ILLNESS: Patient is an 78-year-old male with history of end-stage renal disease, on hemodialysis on a Friday, Friday, Friday schedule. Patient also has a history of Parkinson disease, cardiomyopathy, history of intracranial aneurysm and bleed. He was admitted to the hospital. He currently resides at [facility]. He was admitted to the hospital with a fever. The patient also had rigors. Chest x-ray showed basilar pneumonia, worse on the left side. The patient has been started on antibiotics. PAST MEDICAL HISTORY: End-stage renal disease, dementia, Parkinson disease, hypertension, hyperlipidemia, gastroesophageal reflux disease, dysphagia, polypectomy, BPH, diverticulosis, carotid artery disease, cataracts. PAST SURGICAL HISTORY: Brain coils, dialysis catheter placement, carotid endarterectomy, benign polypectomy, colonoscopies, AV fistula. MEDICATIONS: Medications prior to admission included aspirin, metoprolol, Sinemet, Plavix, Bisacodyl, [place], PhosLo, vitamin D, melatonin, Toprol, potassium, BuSpar, Lucero-Rustam, Requip, Robitussin. ALLERGIES: None. PHYSICAL EXAMINATION: On examination, patient is currently comfortable, awake. He is not in any acute distress. Blood pressure was 128/81, heart rate 110 per minute. He has a temperature of 100.4 degrees this afternoon. Examination of the heart S1, S2. Examination of the lungs, bilateral breath sounds are heard. Abdomen is soft, nontender. Examination of lower extremities shows no evidence of edema. BRICK MOLDER HAND exam shows patient is not able to understand. He is moving all 4 extremities. LABS SHOW: Sodium 141, potassium 3.6, hemoglobin was 11.7 g/dL. UA is unremarkable. ASSESSMENT: 1. End-stage renal disease, on hemodialysis on a Friday, Friday, Friday schedule. 2. Pneumonia, left-sided, maintained on antibiotics. 3. Chronic kidney disease mineral bone disorder. 4. Dyslipidemia. 5. Hypertension, currently controlled. PLAN: Hemodialysis today. DC Fleet enema. Continue with the [facility]. Repeat labs. MMODL / IJN: [id number] /
[2018-11-26] MEDS ORDERED: LEVOFLOXACIN 750 MG TAB PO SCH (03:00)
[2018-11-26] MEDS ORDERED: LOPERAMIDE 2 MG CAP PO PRN (05:52)
[2018-11-26] MEDS ORDERED: guaiFENesin SYRUP 100MG/5ML 200 MG/10 ML CUP PO PRN (05:52)
[2018-11-26 08:00] LABS: Calcium 8.9 mg/dL (8.4-10.2); Magnesium 1.8 mg/dL (1.6-2.3); Total Bilirubin 0.6 mg/dL (0.2-1.3); Total Protein 6.3 g/dL (6.3-8.2)
[2018-11-26 08:10] LABS: Basophils % (A) 1 %; Eosinophils # (A) 0.1 k/uL (0-0.7); Eosinophils % (A) 1 %; HCT 30.1 % (39.0-53.0); Hypochromasia Slight; Lymphocytes # (A) 0.9 k/uL (1.0-4.8); Lymphocytes % (A) 11 %; MCH 30.1 pg (25.0-35.0); MCHC 33.3 g/dL (31.0-37.0); MCV 90.3 fL (80.0-100.0); Mean Platelet Volume 6.4; Monocytes # (A) 0.4 k/uL (0-1.0); Monocytes % (A) 5 %; Neutrophils # (A) 6.8 k/uL (1.3-7.7); Neutrophils % (A) 81 %; Platelet Count 263 k/uL (150-450); RBC 3.34 m/uL (4.30-5.90); RDW 14.7 % (11.5-15.5); WBC 8.3 k/uL (3.8-10.6)
[2018-11-26] MEDS: LACTULOSE 20 GM/30 ML CUP PO SCH (09:22)
[2018-11-26] MEDS: amLODIPine 5 MG TAB PO SCH (09:23)
[2018-11-26] MEDS: FAMOTIDINE 20 MG TAB PO SCH (09:23)
[2018-11-26] MEDS: CLOPIDOGREL 75 MG TAB PO SCH (09:23)
[2018-11-26] MEDS: ALPRAZolam 0.25 MG TAB PO SCH ×3 (09:23→22:31)
[2018-11-26] MEDS: ASPIRIN 81 MG PO SCH (09:23)
[2018-11-26] MEDS: CALCIUM ACETATE 667 MG CAP PO SCH (09:23)
[2018-11-26] MEDS: HEPARIN SODIUM,PORCINE 5,000 UNIT/ML 1 ML VIAL SQ SCH ×2 (09:24→22:29)
[2018-11-26] MEDS: CARBIDOPA-LEVODOPA 25-100 MG 1 EACH TAB PO SCH ×2 (09:27→22:29)
[2018-11-26] MEDS: FOLIC ACID-VIT B COMPLEX-VIT C 1 CAP PO SCH (09:27)
[2018-11-26] MEDS: METOPROLOL SUCCINATE (ER) 25 MG TAB.ER.24H PO SCH ×2 (11:33→22:30)
--- NOTE | 2018-11-26 12:42 | P.PN ---
Subjective Progress Note Date: 11/26/18 Principal diagnosis: Fever and chills, worsening confusion, bilateral pneumonia, aspiration, tac 78-year-old male one of my patient from [facility] for the last 3 years who is known to have advanced dementia, Parkinson disease, end-stage renal disease on hemodialysis 3 times a week, severe PAD, previous history of intracranial hemorrhage with aneurysm, cardiomyopathy, arrhythmia, recurrent infection, slight worsening nutrition lately with significant decline physically and men tally who developed to have low-grade temperature for 48 hours become much worse last night with temperature 4-1.5 patient was having rigors and not feeling well become more confused and less responsive with slightly low oxygen level worsening course cough over both lung cifuentes. Patient was sent to the emergency department at [facility] from [facility] to where was seen and evaluated found to have mild hypoxia, mild tachycardia, chest x-ray showed by basilar pneumonia worse on the left side than the right side. Patient was giving 1 g of Rocephin and started on Levaquin Will admit patient to the hospital for the above problem. 11/26 2019: Patient is doing much better so far decreased temperature, decreased hypoxia, able to tolerate his antibiotic really well. Hemodialysis was done yesterday if patient is more stable will add discharge tomorrow after dialysis he is going back to [facility]. Objective - Vital Signs Vital signs: Vital Signs Temp 98 F 11/26/18 11:46 Pulse 84 11/26/18 11:46 Resp 18 11/26/18 11:46 BP 88/53 11/26/18 11:46 Pulse Ox 94 L 11/26/18 11:46 Intake & Output 11/25/18 11/26/18 11/26/18 18:59 06:59 18:59 Intake Total 300 100 Output Total 0 Balance 300 100 Intake: Intake, IV Titration 100 Amount Levofloxacin 500Mg-D5w 100 Pmx 500 mg In Dextrose/ Water 1 100ml.bag @ 100 mls/hr IVPB MoWeFr [facility] Rx #:[id number] Oral 300 Output: Hemodialysis 0 Other: Voiding Method Incontinent Incontinent Incontinent # Voids 1 1 - Exam ROS: CONSTITUTIONAL: Well-developed mild respiratory distress looks older than his age. EYES: No icterus sclerae, no conjunctivitis. EARS, NOSE, MOUTH, THROAT, and FACE: No sore throat, lymphadenopathy, carotid bruits or deformity. RESPIRATORY: Positive shortness of breath cough wheezes. CARDIOVASCULAR: Positive tachycardia no angina. GASTROINTESTINAL: No Abd pain, Nausea or vomiting, no Diarrhea or constipation, No GI Bleed, no distention or masses. GENITOURINARY: Positive incontinence with decrease in urine output mostly on hemodialysis. INTEGUMENT/BREAST: Negative for any muscular injury with mild osteoarthritis.. HEMATOLOGIC/LYMPHATIC: Negative for bleed or purpura. MUSCULOSKELTAL: Negative for Myalgia or arthralgia. NEURLOGICAL: Parkinson disease with significant memory loss. BEHAVIORAL/PSYCH: Negative. ENDOCRINE: Negative. Physical examination: General Appearance: Alert, severely confuse, looks older than his age still having mild shortness of breath. Neck HEENT: Supple, no lymphadenopathy, no thyroid enlargement, no carotid bruits. Lungs: Decreased breath some bilateral fine rhonchi past crackles in the bases worse in the left and the right side with mild expiratory wheezes. Chest Wall: Decrease expansion with deep inspiration no tenderness and no deformity was found on exam, no costochondral pain or discomfort. Heart: Regular rate and rhythm, S1, S2 positive S3 positive arrhythmia. With ejection systolic murmur. Back: Symmetric, no curvature, ROM normal, no CVA tenderness. Abdomen: Soft, non-tender, bowel sounds active all four quadrants, no masses, no organomegaly. Extremities: Extremities normal, atraumatic, no cyanosis or edema. Pulses: Decreased bilaterally. Skin: Skin color, texture, tugor normal, no rashes or lesions. Neurologic: Alert oriented with significant confusion his Coumadin medication and speech is very limited moving both side equally still have mild resting tremor very rigid expression face typical for Parkinson with significant memory loss. - Labs CBC & Chem 7: 11/26/18 07:15 11/26/18 07:15 Labs: Abnormal Lab Results - Last 24 Hours (Table) 11/26/18 11/26/18 Range/Units 07:15 07:15 RBC 3.34 L (4.30-5.90) m/uL Hgb 10.0 L D (13.0-17.5) gm/dL Hct 30.1 L (39.0-53.0) % Lymphocytes # 0.9 L (1.0-4.8) k/uL BUN 22 H (9-20) mg/dL Creatinine 2.22 H (0.66-1.25) mg/dL Glucose 100 H (74-99) mg/dL ALT 10 L (21-72) U/L Albumin 3.0 L (3.5-5.0) g/dL Microbiology - Last 24 Hours (Table) 11/25/18 16:45 Gram Stain - Preliminary Sputum Sputum Culture - Preliminary 11/25/18 00:47 Blood Culture - Preliminary Blood No Growth after 24 hours Assessment and Plan Plan: 1 acute respiratory failure: Secondary to bilateral pneumonia most likely aspiration with positive for gram-negative, with worsening COPD, will continue updraft, O2 and antibiotics. 2 aspiration pneumonia most likely gram-negative will cover patient with 1 g of Rocephin in the emergency room and continue Levaquin daily for now continue oral antibiotic less culture came back to family. 3 fever and chills with leukocytosis: Most likely secondary to aspiration pneumonia with worsening early sepsis patient be on antibiotic hydration. 4 end-stage renal disease on hemodialysis 3 times a week, CONSULT NEPHROLOGY AND CONTINUE DIALYSIS. 5 PARKINSON DISEASE: REMAIN ON SINEMET AND ROPINIROLE CONTINUE BOTH MEDICATION. 6 ATHEROSCLEROTIC HEART DISEASE: WITH NO CHEST PAIN OR ANGINA LATELY REMAIN ON METOPROLOL PLAVIX AND NITRO. 8 ARRHYTHMIA: MOSTLY NONSUSTAINED A. FIB HE IS NOT ON ANY ANTICOAGULATION REMAIN ON METOPROLOL TOTAL OF 75 MG TWICE A DAY. 9 chronic COPD: Patient will continue on updraft treatment with DuoNeb and Pulmicort continue O2. 10 confusion/anxiety and panic attacks: Remain on alprazolam along with BuSpar as needed. 11 chronic pain syndrome: Has been on hydrocodone 5/325 mg every 6 hours as needed for chronic lower back pain. 12 GERD/GI prophylaxis: Patient will be on Pepcid 20 mg daily. Discharge planning: Patient is tolerating his medication well with decrease temperature mental status without its baseline and after dialysis hopefully will be able to go back to [facility] tomorrow.
--- NOTE | 2018-11-26 14:41 | XR ---
EXAMINATION TYPE: XR chest 2V DATE OF EXAM: 11/26/2018 COMPARISON: 11/25/2018 TECHNIQUE: PA and lateral views submitted. HISTORY: Fever FINDINGS: Bilateral consolidation and small effusion. Hyperinflation of the lungs. No pneumothorax. Interstitiu m is prominent. Atherosclerotic change aorta. IMPRESSION: 1. Stable bilateral lower lobe infiltrate and small effusion correlate for pneumonia versus CHF.
--- NOTE | 2018-11-26 16:08 | PN ---
PROGRESS NOTE Patient is seen for followup for end-stage renal disease. He was dialyzed yesterday. Patient did not tolerate any significant UF. He has not been eating much. On examination today, blood pressure was 115/58, heart rate of 84 per minute. He is afebrile. EXAMINATION OF THE HEART: S1 and S2. EXAMINATION OF LUNGS: Bilateral breath sounds are heard. ABDOMEN: Soft, non-tender. Examination of lower extremities shows no significant edema. Labs show hemoglobin 10.0, sodium 139, potassium 4.0, BUN 22, creatinine 2.2. ASSESSMENT: 1. End-stage renal disease, on hemodialysis on a Friday, Friday, Friday schedule. 2. Parkinson's disease with advanced dementia. Patient is currently having very poor oral intake. Continue to encourage. 3. Bilateral pneumonia, maintained on antibiotics and improved. 4. Chronic kidney disease mineral bone disorder. 5. Hypovolemia. PLAN: Continue to encourage increased oral intake. Hemodialysis tomorrow. No ultrafiltration with dialysis tomorrow. If blood pressure drops again, we will give a fluid bolus. MMODL / IJN: [id number] /
[2018-11-26] MEDS ORDERED: busPIRone HCl 5 MG TAB PO SCH (17:00)
[2018-11-26] MEDS ORDERED: CHOLECALCIFEROL 1,000 UNIT TAB PO SCH (17:00)
--- NOTE | 2018-11-26 20:29 | CONS ---
CONSULTATION This is a pulmonary/critical care consultation. HISTORY OF PRESENT ILLNESS: This is an 78-year-old [place] man brought into the EMS. He apparently resides in the alf. He apparently was brought in for fever. The fever apparently started 1 day prior to admission on the . He apparently had been on Keflex for urinary tract infection. The alf staff apparently knows the temperature which was 101.5. He apparently was congested on pulmonary examination and for that reason, was brought in to be evaluated. He apparently was seen in the emergency room, admitted with a possible diagnosis of pneumonia. Because he resides at the alf, it would be healthcare acquired pneumonia. He is unable to give any history to me. He is mostly Yakut speaking. He speaks very little Botswanan. He basically is lying on his right side moaning. He is a DNR. His chest x-rays do show some minimal infiltrates or atelectasis at the lung bases. HOME MEDICATIONS: His alf medications include aspirin, metoprolol, Zocor, Flomax, Sinemet, Plavix, Tylenol, stool softener, Nephrocaps, hydrocortisone cream, lactulose, melatonin, Fleet's enema, Nepro, and amlodipine. He has also been on Mumford and Xanax. ALLERGIES: Denied. PAST MEDICAL HISTORY: Includes dementia, GERD, hyperlipidemia, hypertension, pneumonia, prostate disease, cervical fracture, hematuria, anemia, brain aneurysm, treated with coiling, renal failure, currently on hemodialysis Friday, Friday, Friday, Parkinson disease, BPH, diverticular disease, syncope, and bilateral cataracts. SURGICAL HISTORY: Includes hemodialysis catheter, aneurysm treatment with coils, carotid endarterectomy, colonoscopy, polypectomy, among other things. SOCIAL HISTORY: Positive for previous tobacco use. Apparently does not drink or use illicit drugs. FAMILY HISTORY: Positive for father with myocardial infarction. Apparently, he has a strong family history of heart disease in the family. Mother has a history of cerebrovascular accident/transient ischemic attack. REVIEW OF SYSTEMS: Cannot be obtained. The patient is a very poor historian. Speaks very little Botswanan. Apparently, the reason for him being here was primarily chest congestion and temperature elevation. PHYSICAL EXAMINATION: VITAL SIGNS: Current vital signs are reviewed. His temperature is 98, heart rate 84, respiratory rate 18, blood pressure 88/53, mean 64, room air saturation 94%. Appears in no acute distress. No respiratory distress. Lying on his right side. HEENT examination is grossly unremarkable. No supplemental oxygen. NECK: Supple. Full range of motion. CARDIOVASCULAR examination reveals regular rhythm and rate. Heart rate 84. LUNGS: A few scattered rhonchi. No wheezes or crackles. ABDOMEN: Soft. EXTREMITIES are intact. No cyanosis or clubbing. SKIN: Without rash. NEUROLOGIC: Examination cannot be adequately assessed. A chest x-ray is done. It shows bibasilar atelectasis or infiltrates. There may be a small effusion. Chest x-ray findings are very stable compared to earlier x-rays. LABS: Reviewed. White count 8.3, hemoglobin 10, hematocrit 30.1, platelet count 263,000. Sodium, potassium, chloride and CO2 all normal. Anion gap is 7. BUN and creatinine were 22 and 2.22. The rest of the labs look okay. Urine is clean. Influenza studies are negative. Hepatitis B antigen is negative. Medications are reviewed. Currently he is on Levaquin as a single antibiotic for his presumed infection. ASSESSMENT: 1. Possible healthcare acquired pneumonia, although it is very difficult to assess in this patient who does not give a very good history and a stable chest x-ray. The chest congestion and temperature elevation were the features that suggest the possibility of pneumonia versus tracheobronchitis. 2. Multiple other medical problems and comorbidities as listed above. PLAN: Antibiotics are appropriate. Would transition him to oral antibiotics as soon as possible. No additional recommendations are made. Prognosis is guarded. He is a NO CODE patient. He is 78 years of age. Additional recommendations and suggestions are forthcoming. We would recommend aspiration precautions with head of bed elevated at all times. MMODL / IJN: [id number] /
[2018-11-26] MEDS ORDERED: MELATONIN 5 MG TABLET PO SCH (21:00)
[2018-11-26] MEDS ORDERED: NON FORMULARY DRUG (Rena-Vite 1 TAB) PO SCH (21:00)
[2018-11-26] MEDS: ATORVASTATIN 10 MG TAB PO SCH (22:29)
[2018-11-27] MEDS ORDERED: LIDOCAINE-PRILOCAINE 2.5-2.5% CREAM 5 GM TUBE TOPICAL SCH (09:00)
[2018-11-27 11:58] VITALS: BP 136/77; PULSE 87; RESP 18; TEMP 98.7
--- NOTE | 2018-11-27 12:14 | P.DS ---
Providers Date of admission: 11/25/18 02:01 Attending physician: Burton Cantrell Consults: 11/25/18 01:56 Consult Physician Routine Consulting Provider: Marisela Garnica Consult Reason/Comments: dialysis patient Do you want consulting provider notified?: Yes 11/25/18 11:27 Consult Physician Routine Consulting Provider: Ernesto Ewing Consult Reason/Comments: aspiration pneumonia Do you want consulting provider notified?: Yes Primary care physician: [facility] Course: Fever and chills, worsening confusion, bilateral pneumonia, aspiration, tac 78-year-old male one of my patient from [facility] for the last 3 years who is known to have advanced dementia, Parkinson disease, end-stage renal disease on hemodialysis 3 times a week, severe PAD, previous history of intracranial hemorrhage with aneurysm, cardiomyopathy, arrhythmia, recurrent infection, slight worsening nutrition lately with significant decline physically and mentally who developed to have low-grade temperature for 48 hours become much worse last night with temperature 4-1.5 patient was having rigors and not feeling well become more confused and less responsive with slightly low oxygen level worsening course cough over both lung cifuentes. Patient was sent to the emergency department at [facility] from [facility] to where was seen and evaluated found to have mild hypoxia, mild tachycardia, chest x-ray showed by basilar pneumonia worse on the left side than the right side. Patient was giving 1 g of Rocephin and started on Levaquin Will admit patient to the hospital for the above problem. 11/26 2019: Patient is doing much better so far decreased temperature, decreased hypoxia, able to tolerate his antibiotic really well. Hemodialysis was done yesterday if patient is more stable will add discharge tomorrow after dialysis he is going back to [facility]. - Exam ROS: CONSTITUTIONAL: Well-developed mild respiratory distress looks older than his age. EYES: No icterus sclerae, no conjunctivitis. EARS, NOSE, MOUTH, THROAT, and FACE: No sore throat, lymphadenopathy, carotid bruits or deformity. RESPIRATORY: Positive shortness of breath cough wheezes. CARDIOVASCULAR: Positive tachycardia no angina. GASTROINTESTINAL: No Abd pain, Nausea or vomiting, no Diarrhea or constipation, No GI Bleed, no distention or masses. GENITOURINARY: Positive incontinence with decrease in urine output mostly on hemodialysis. INTEGUMENT/BREAST: Negative for any muscular injury with mild osteoarthritis.. HEMATOLOGIC/LYMPHATIC: Negative for bleed or purpura. MUSCULOSKELTAL: Negative for Myalgia or arthralgia. NEURLOGICAL: Parkinson disease with significant memory loss. BEHAVIORAL/PSYCH: Negative. ENDOCRINE: Negative. Physical examination: General Appearance: Alert, severely confuse, looks older than his age still having mild shortness of breath. Neck HEENT: Supple, no lymphadenopathy, no thyroid enlargement, no carotid bruits. Lungs: Decreased breath some bilateral fine rhonchi past crackles in the bases worse in the left and the right side with mild expiratory wheezes. Chest Wall: Decrease expansion with deep inspiration no tenderness and no deformity was found on exam, no costochondral pain or discomfort. Heart: Regular rate and rhythm, S1, S2 positive S3 positive arrhythmia. With ejection systolic murmur. Back: Symmetric, no curvature, ROM normal, no CVA tenderness. Abdomen: Soft, non-tender, bowel sounds active all four quadrants, no masses, no organomegaly. Extremities: Extremities normal, atraumatic, no cyanosis or edema. Pulses: Decreased bilaterally. Skin: Skin color, texture, tugor normal, no rashes or lesions. Neurologic: Alert oriented with significant confusion his Coumadin medication and speech is very limited moving both side equally still have mild resting tremor very rigid expression face typical for Parkinson with significant memory loss. Assessment and Plan Plan: 1 acute respiratory failure: Secondary to bilateral pneumonia most likely aspiration with positive for gram-negative, with worsening COPD, will continue updraft, O2 and antibiotics. 2 aspiration pneumonia most likely gram-negative will cover patient with 1 g of Rocephin in the emergency room and continue Levaquin daily for now continue oral antibiotic less culture came back to family. 3 fever and chills with leukocytosis: Most likely secondary to aspiration pneumonia with worsening early sepsis patient be on antibiotic hydration. 4 end-stage renal disease on hemodialysis 3 times a week, CONSULT NEPHROLOGY AND CONTINUE DIALYSIS. 5 PARKINSON DISEASE: REMAIN ON SINEMET AND ROPINIROLE CONTINUE BOTH MEDICATION. 6 ATHEROSCLEROTIC HEART DISEASE: WITH NO CHEST PAIN OR ANGINA LATELY REMAIN ON METOPROLOL PLAVIX AND NITRO. 8 ARRHYTHMIA: MOSTLY NONSUSTAINED A. FIB HE IS NOT ON ANY ANTICOAGULATION REMAIN ON METOPROLOL TOTAL OF 75 MG TWICE A DAY. 9 chronic COPD: Patient will continue on updraft treatment with DuoNeb and Pulmicort continue O2. 10 confusion/anxiety and panic attacks: Remain on alprazolam along with BuSpar as needed. 11 chronic pain syndrome: Has been on hydrocodone 5/325 mg every 6 hours as needed for chronic lower back pain. 12 GERD/GI prophylaxis: Patient will be on Pepcid 20 mg daily. Discharge planning: Patient is tolerating his medication well with decrease temperature mental status without its baseline and after dialysis hopefully will be able to go back to [facility] today. Patient had his hemodialysis today doing very well will be discharged back to [facility] and oral Levaquin for total of 10 more days. Plan - Discharge Summary Discharge Rx Participant: No New Discharge Prescriptions: New Levofloxacin [Levaquin] 500 mg PO Q48H #5 tab Atorvastatin [Lipitor] 10 mg PO HS tab guaiFENesin-DM 600/30MG [Mucinex Dm] 1 each PO Q12HR #20 tab.er.12h Folic Acid-Vit B Complex-Vit C [Nephrocaps] 1 each PO DAILY cap amLODIPine [Norvasc] 5 mg PO DAILY tab ALPRAZolam [Xanax] 0.25 mg PO TID PRN #60 tab PRN Reason: Agitation Or Acute Anxiety Ipratropium-Albuterol Nebulize [Duoneb 0.5 mg-3 mg/3 ml Soln] 3 ml INHALATION AC-TID #90 neb Continue Metoprolol Succinate (ER) [Toprol XL] 50 mg PO BID@0800,2100 Aspirin EC [Ecotrin Low Dose] 81 mg PO DAILY@0800 Carbidopa-Levodopa 25-100 mg [Sinemet 25-100 mg] 1 tab PO BID@0800,1700 Clopidogrel Bisulfate [Plavix] 75 mg PO DAILY@0800 Hydrocortisone Cream [Hydrocortisone 2.5% Cream] 1 applic TOPICAL QID PRN PRN Reason: Itching Bisacodyl 10 mg RECTAL DAILY PRN PRN Reason: Constipation Acetaminophen Tab [Tylenol] 650 mg PO Q4H PRN PRN Reason: Fever Nepro 1 can PO BID@0800,1200 Lactulose 10 gm PO DAILY PRN PRN Reason: Constipation HYDROcodone/APAP 5-325MG [[place] 5-325] 1 tab PO Q4HR PRN #60 tab PRN Reason: Pain Loperamide HCl [Imodium A-D] 4 mg PO BID PRN PRN Reason: Loose Stool rOPINIRole HCL [Requip] 0.25 mg PO TID@0800,1200,2100 Metoprolol Succinate [Toprol XL] 25 mg PO BID@0800,2100 Lucero-Rustam 1 tab PO DAILY@2100 Cholecalciferol (Vitamin D3) [Vitamin D3] 2,000 unit PO DAILY@1700 Potassium Chloride ER [K-Dur 10] 10 meq PO DAILY@0800 Melatonin 5 mg PO HS@2100 Lidocaine-Prilocaine Cream [Emla Cream 2.5%/2.5%] 1 applic TOPICAL MOWEFR busPIRone HCL [Buspar] 7.5 mg PO DAILY@1700 Calcium Acetate [PhosLo] 667 mg PO DAILY@1200 guaiFENesin SYRUP 100MG/5ML [Robitussin] 200 mg PO Q4H PRN PRN Reason: Cough Discharge Medication List Aspirin EC [Ecotrin Low Dose] 81 mg PO DAILY@0800 01/15/16 [History] Metoprolol Succinate (ER) [Toprol XL] 50 mg PO BID@0800,2100 01/15/16 [History] Carbidopa-Levodopa 25-100 mg [Sinemet 25-100 mg] 1 tab PO BID@0800,1700 02/28/16 [History] Clopidogrel Bisulfate [Plavix] 75 mg PO DAILY@0800 12/18/16 [History] Acetaminophen Tab [Tylenol] 650 mg PO Q4H PRN 01/06/17 [History] Bisacodyl 10 mg RECTAL DAILY PRN 01/06/17 [History] Hydrocortisone Cream [Hydrocortisone 2.5% Cream] 1 applic TOPICAL QID PRN 01/06/17 [History] Lactulose 10 gm PO DAILY PRN 01/06/17 [History] Nepro 1 can PO BID@0800,1200 01/06/17 [History] HYDROcodone/APAP 5-325MG [[place] 5-325] 1 tab PO Q4HR PRN #60 tab 01/07/17 [Rx] Calcium Acetate [PhosLo] 667 mg PO DAILY@1200 11/25/18 [History] Cholecalciferol (Vitamin D3) [Vitamin D3] 2,000 unit PO DAILY@1700 11/25/18 [History] Lidocaine-Prilocaine Cream [Emla Cream 2.5%/2.5%] 1 applic TOPICAL MOWEFR 11/25/18 [History] Loperamide HCl [Imodium A-D] 4 mg PO BID PRN 11/25/18 [History] Melatonin 5 mg PO HS@209911/25/18 [History] Metoprolol Succinate [Toprol XL] 25 mg PO BID@0800,2100 11/25/18 [History] Potassium Chloride ER [K-Dur 10] 10 meq PO DAILY@0800 11/25/18 [History] Lucero-Rustam 1 tab PO DAILY@209911/25/18 [History] busPIRone HCL [Buspar] 7.5 mg PO DAILY@1700 11/25/18 [History] guaiFENesin SYRUP 100MG/5ML [Robitussin] 200 mg PO Q4H PRN 11/25/18 [History] rOPINIRole HCL [Requip] 0.25 mg PO TID@0800,1200,2100 11/25/18 [History] ALPRAZolam [Xanax] 0.25 mg PO TID PRN #60 tab 11/27/18 [Rx] Atorvastatin [Lipitor] 10 mg PO HS tab 11/27/18 [Rx] Folic Acid-Vit B Complex-Vit C [Nephrocaps] 1 each PO DAILY cap 11/27/18 [Rx] Ipratropium-Albuterol Nebulize [Duoneb 0.5 mg-3 mg/3 ml Soln] 3 ml INHALATION AC-TID #90 neb 11/27/18 [Rx] Levofloxacin [Levaquin] 500 mg PO Q48H #5 tab 11/27/18 [Rx] amLODIPine [Norvasc] 5 mg PO DAILY tab 11/27/18 [Rx] guaiFENesin-DM 600/30MG [Mucinex Dm] 1 each PO Q12HR #20 tab.er.12h 11/27/18 [Rx] Follow up Appointment(s)/Referral(s): Burton Cantrell MD [Primary Care Provider] - 1-2 days Discharge Disposition: TRANSFER TO SNF/F
[2018-11-27] MEDS: ALPRAZolam 0.25 MG TAB PO SCH ×2 (12:27→15:27)
[2018-11-27] MEDS: amLODIPine 5 MG TAB PO SCH (12:27)
[2018-11-27] MEDS: CARBIDOPA-LEVODOPA 25-100 MG 1 EACH TAB PO SCH (12:27)
[2018-11-27] MEDS: CALCIUM ACETATE 667 MG CAP PO SCH (12:27)
[2018-11-27] MEDS: CLOPIDOGREL 75 MG TAB PO SCH (12:27)
[2018-11-27] MEDS: FOLIC ACID-VIT B COMPLEX-VIT C 1 CAP PO SCH (12:27)
[2018-11-27] MEDS: LACTULOSE 20 GM/30 ML CUP PO SCH (12:28)
[2018-11-27] MEDS: METOPROLOL SUCCINATE (ER) 25 MG TAB.ER.24H PO SCH (12:28)
[2018-11-27] MEDS: ASPIRIN 81 MG PO SCH (12:28)
[2018-11-27] MEDS: FAMOTIDINE 20 MG TAB PO SCH (12:29)
[2018-11-27] MEDS: HEPARIN SODIUM,PORCINE 5,000 UNIT/ML 1 ML VIAL SQ SCH (12:29)
--- NOTE | 2018-11-27 14:48 | P.PN ---
Subjective Progress Note Date: 11/27/18 Principal diagnosis: The patient is seen today 11/27/2018 in follow-up on the regular medical floor. He is a bit more awake and alert today as compared to yesterday. Currently re ceiving hemodialysis. Maintaining good O2 saturations in the 90s on room air. He is afebrile. Hemodynamically stable. Sputum culture was positive for Dorys only. Blood cultures reveal no growth. He is continued on Levaquin. Objective - Vital Signs Vital signs: Vital Signs Temp 98.7 F 11/27/18 11:56 Pulse 87 11/27/18 11:56 Resp 18 11/27/18 11:56 BP 136/77 11/27/18 12:00 Pulse Ox 90 L 11/27/18 04:51 Intake & Output 11/26/18 11/27/18 11/27/18 18:59 06:59 18:59 Intake Total 100 590 Output Total 500 Balance 100 590 -500 Intake: Oral 100 590 Output: Hemodialysis 500 Other: Voiding Method Incontinent Incontinent Diaper Incontinent # Voids 2 1 - Exam GENERAL EXAM: Frail cachectic 78-year-old gentleman, alert, on room air, comfortable in no apparent distress. HEAD: Normocephalic. EYES: Normal reaction of pupils, equal size. NOSE: Clear with pink turbinates. THROAT: No erythema or exudates. NECK: No masses, no JVD. CHEST: No chest wall deformity. LUNGS: Equal air entry with faint crackles in the posterior bases. CVS: S1 and S2 normal with no audible murmur, regular rhythm. ABDOMEN: No hepatosplenomegaly, normal bowel sounds, no guarding or rigidity. SPINE: No scoliosis or deformity SKIN: No rashes CENTRAL NERVOUS SYSTEM: No focal deficits, tone is normal in all 4 extremities. EXTREMITIES: There is no peripheral edema. No clubbing, no cyanosis. Peripheral pulses are intact. - Labs CBC & Chem 7: 11/26/18 07:15 11/26/18 07:15 Labs: Microbiology - Last 24 Hours (Table) 11/25/18 16:45 Gram Stain - Final Sputum Sputum Culture - Final Dorys albicans 11/25/18 00:47 Blood Culture - Preliminary Blood No Growth after 48 hours Assessment and Plan Assessment: Impression: #1 Dyspnea secondary to suspected healthcare acquired pneumonia versus tracheobronchitis. Currently on Levaquin. #2 Dementia. #3 Hyperlipidemia. #4 Hypertension. #5 End-stage renal disease on hemodialysis Friday. Gastroesophageal reflux disease. #7 Parkinson's disease. Plan: The patient was seen and evaluated by Dr. Ewing. Follow-up chest x-ray reviewed. He is stable from the pulmonary standpoint. Continued on Levaquin. The plan is to transfer to [facility] once cleared medically. I, the cosigning physician, performed a history & physical examination of the patient. Lungs sounds with faint crackles in the posterior bases. Maintaining good O2 saturations in the 90s on room air. I discussed the assessment and plan of care with my nurse practitioner, Moni Mirza. I attest to the above note as dictated by her.
--- NOTE | 2018-11-27 17:48 | PN ---
PROGRESS NOTE Patient is seen for followup for end-stage renal disease. He is maintained on a Friday, Friday, Friday schedule. Patient was dialyzed today. There are plans for possible discharge today. On examination, this morning blood pressure was 101/61. The patient is afebrile. Heart rate about 90 per minute. EXAMINATION OF THE HEART: S1 and S2. EXAMINATION OF LUNGS: Bilateral breath sounds are heard. ABDOMEN: Soft, non-tender. Examination of lower extremities shows no evidence of edema. Patient has a flat affect. He did eat his dinner last night. He has to be fed. Labs show sodium 139, potassium 4.0, hemoglobin 10.0 g/dL. ASSESSMENT: 1. End-stage renal disease, on hemodialysis. Patient was dialyzed today. He tolerated his treatment well. 2. Pneumonia, maintained on antibiotics, currently improved. 3. Chronic kidney disease mineral bone disorder. 4. Advanced dementia. 5. Severe Parkinson's disease; however, patient is at his baseline. PLAN: Discharge today with plans to follow up as outpatient for hemodialysis on Friday. Continue with antibiotics. Continue to encourage increased oral intake. MMODL / IJN: [id number] /
== END 2018-11-27 15:40 | DRG 871 ==
LOC: EC 23:50 → 3NMEDONC 11-25 02:01
PROVIDERS: ADMIT Internal Medicine Geriatric Medicine; ATTEND Internal Medicine Geriatric Medicine
PROC: 5A1D70Z Performance of Urinary Filtration, Intermittent, Less than 6 Hours Per Day (ICD-10-PCS; principal; 2018-11-27)
DX: A41.50 Gram-negative sepsis, unspecified (principal); J69.0 Pneumonitis due to inhalation of food and vomit; J96.01 Acute respiratory failure with hypoxia; N18.6 End stage renal disease; I13.2 Hypertensive heart and chronic kidney disease with heart failure and with stage 5 chronic kidney disease, or end stage renal disease; I42.9 Cardiomyopathy, unspecified; Z87.891 Personal history of nicotine dependence; Z66 Do not resuscitate; E78.5 Hyperlipidemia, unspecified; E86.1 Hypovolemia; F02.80 Dementia in other diseases classified elsewhere, unspecified severity, without behavioral disturbance, psychotic disturbance, mood disturbance, and anxiety; F41.0 Panic disorder [episodic paroxysmal anxiety]; G20 Parkinson's disease; G89.4 Chronic pain syndrome; I25.10 Atherosclerotic heart disease of native coronary artery without angina pectoris; I48.91 Unspecified atrial fibrillation; I50.9 Heart failure, unspecified; J44.9 Chronic obstructive pulmonary disease, unspecified; K21.9 Gastro-esophageal reflux disease without esophagitis; M89.9 Disorder of bone, unspecified; N40.0 Benign prostatic hyperplasia without lower urinary tract symptoms; Y95 Nosocomial condition; H26.9 Unspecified cataract; R32 Unspecified urinary incontinence; Z79.02 Long term (current) use of antithrombotics/antiplatelets; Z79.82 Long term (current) use of aspirin; Z79.899 Other long term (current) drug therapy; Z82.3 Family history of stroke; Z82.49 Family history of ischemic heart disease and other diseases of the circulatory system; Z86.73 Personal history of transient ischemic attack (TIA), and cerebral infarction without residual deficits; Z86.79 Personal history of other diseases of the circulatory system; Z99.2 Dependence on renal dialysis; I73.9 Peripheral vascular disease, unspecified; Z91.81 History of falling; Z86.010 Personal history of colon polyps; Z87.01 Personal history of pneumonia (recurrent)
CPT/HCPCS: 36415; 71046; 80053; 81001; 82550; 83605; 83735; 85025; 87040; 87070; 87205; 87340; 87502; 90935; 96365; 96367; 99285